=== PATIENT | female | born 1945 ===

== ENCOUNTER → 2021-03-26 13:09 | Outpatient (BNVA) | payer OTHER, SELFPAY | PROVIDERS: PCP Internal Medicine; Visit Provider Nurse Practitioner Family ==

== ENCOUNTER → 2021-05-29 15:25 | Outpatient (BNVA) | payer OTHER, SELFPAY | PROVIDERS: PCP Internal Medicine; Visit Provider Nurse Practitioner Family ==

== ENCOUNTER → 2022-04-22 13:04 | Outpatient (BNVA) | payer OTHER, SELFPAY | PROVIDERS: PCP Internal Medicine; Visit Provider Nurse Practitioner Family | DX: Z13.89 Encounter for screening for other disorder (principal) ==

== ENCOUNTER → 2022-06-10 13:54 | Outpatient (BNVA) | payer OTHER, SELFPAY | PROVIDERS: PCP Internal Medicine; Visit Provider Psychiatry & Neurology Neurology | DX: K11.7 Disturbances of salivary secretion (principal) | CPT/HCPCS: 64611; J0585 ==

== ENCOUNTER → 2022-07-23 20:30 | Outpatient (REF) | payer OTHER, SELFPAY | LOC: HO.SL 20:30 | PROVIDERS: PCP Internal Medicine; Visit Provider Nurse Practitioner Family | DX: G47.50 Parasomnia, unspecified (principal); R06.83 Snoring; G47.19 Other hypersomnia; G20 Parkinson's disease | CPT/HCPCS: 95810 ==

== ENCOUNTER → 2022-08-24 15:19 | Outpatient (BNVA) | payer OTHER, SELFPAY | PROVIDERS: PCP Internal Medicine; Visit Provider Nurse Practitioner Family ==

== ENCOUNTER → 2022-09-22 13:22 | Outpatient (BNVA) | payer OTHER, SELFPAY | PROVIDERS: PCP Internal Medicine; Visit Provider Psychiatry & Neurology Neurology | DX: K11.7 Disturbances of salivary secretion (principal) | CPT/HCPCS: 64611; J0585 ==

== ENCOUNTER 2022-12-21 14:29 | Outpatient (AMB) | payer OTHER, SELFPAY ==
--- NOTE | 2022-12-21 14:29 | A.OFFVIS_ITS ---
Intake Intake Visit Reasons: 4m follow up-Confirmed Intake Note: Patient presents for follow up. patients states her tremors are really bad and her legs are not responding to what she wants to do, they give up on her. Allergies losartan Allergy (Severe, Verified 12/28/22 15:21) Unknown metformin Allergy (Unknown, Verified 12/28/22 15:21) Unknown lisinopril Adverse Reaction (Verified 12/28/22 15:21) unknown Medication List - Last Reconciled 12/21/22 by MARY Arias amlodipine 10 mg PO DAILY carbidopa 25 mg PO QID 30 days carbidopa-levodopa 23.75-95 mg ER (Rytary) 1 cap PO QID 90 days carbidopa-levodopa 36.25-145 mg ER (Rytary) 1 cap PO BID 30 days insulin glargine (Lantus Solostar U-100 Insulin) 10 units subcut QPM meclizine 12.5 mg PO TID PRN 14 days meloxicam 15 mg PO DAILY mirtazapine 7.5 mg PO BEDTIME omeprazole 20 mg PO BID onabotulinumtoxinA (Botox) 100 units IM ONCE 12 weeks ondansetron HCl 4 mg PO Q8H PRN 14 days propranolol 10 mg PO BID 30 days rosuvastatin 10 mg PO DAILY sertraline 100 mg PO DAILY sertraline 25 mg PO DAILY sitagliptin phosphate (Januvia) 100 mg PO DAILY valbenazine (Ingrezza) 80 mg PO DAILY 30 days HPI HPI Comments History of Present Illness Details 77-yr-old female presents for f/u televi vincent visit via [employer] [place], her dtr provides history. Pt's dtr reports that pt was having increased N/V. Family and PCP has tried making med adjustments, which seems to be helping some. Pt is now having much less bouts of nausea and vomiting. She does have difficulty swallowing, which can trigger bouts of vomiting. Pt is having a bit more leg weakness, legs not responding, legs wanting to give out. Can be prone to orthostatic lightheadedness or random dizziness. Pt's current PD/TD medication regimen: Rytary 23.75-95mg 1 cap tid. Propranolol 10mg bid Ingrezza 80mg Using Zofran prn PFSH Surgical History History of orthopedic surgery Family History Mother Heart disease Brother Parkinson disease Son Epilepsy Social History Alcohol intake: never Patient Tobacco Use Status: Current everyday Tobacco user Review of Systems Const All systems reviewed & are unremarkable except as noted in HPI and below Physical Exam Const General: cooperative and no acute distress Resp Effort & Inspection: normal respiratory effort and able to speak in complete sentences Assessment & Plan Assessment & Plan (1) Dysphagia: Code(s): R13.10 - Dysphagia, unspecified (2) Parkinson disease: Comment: Positive PASQUALE scan Code(s): G20 - Parkinson's disease (3) Neuroleptic-induced tardive dyskinesia: Code(s): G24.01 - Drug induced subacute dyskinesia; T43.505A - Adverse effect of unspecified antipsychotics and neuroleptics, initial encounter Plan Try to reduce Ingrezza from 80mg qd to 60mg qd- in hopes this reduces her bradykinesia Continue Rytary 23.75-95mg 1 cap tid- 8am, 2pm, 8pm. Continue Propranolol 10mg bid- 8 am and 4pm Orders: Orders [place] barium swallow 12/21/22 R13.10 - Dysphagia, unspecified Medications: New valbenazine (Ingrezza) 60 mg PO DAILY 30 days 30 caps 3RF Telehealth Telehealth Location of provider rendering services: practice address Location of patient: address on file Patient Identification confirmed using: Name, : Yes Telehealth method: video Patient verbally consented to treatment: Yes Patient verbally consented to billing insurance company: Yes Patient informed of any privacy concerns related to visit: Yes Minutes spent on Phone/Video with Pt.: 15 Coding Level of Care Code Tele Est Pt Level 4 (93852) Diagnoses Dysphagia R13.10 Parkinson disease G20 Neuroleptic-induced tardive dyskinesia G24.01; T43.505A
== END 2022-12-22 08:23 | disposition home or self-care (01) ==
LOC: HO.HSMS 14:29
PROVIDERS: PCP Internal Medicine; Visit Provider Nurse Practitioner Family
DX: G20.B2 Parkinson's disease with dyskinesia, with fluctuations (principal); R13.10 Dysphagia, unspecified
CPT/HCPCS: 99214

== ENCOUNTER → 2022-12-21 14:29 | Outpatient (BNVA) | payer OTHER, SELFPAY | PROVIDERS: PCP Internal Medicine; Visit Provider Nurse Practitioner Family ==

== ENCOUNTER 2022-12-28 15:13 | Outpatient (AMB) | payer OTHER, SELFPAY ==
--- NOTE | 2022-12-28 15:17 | MHC.OFFVIS ---
Intake Vital Signs 12/28/22 15:23 Height 4 ft 11 in Weight 130 lb 8 oz BMI 26.4 BP 108/58 L Blood Pressure Location Lt brachial Position Sitting Respiration 15 Pulse 74 Pulse Source Pulse Oximeter Pulse Oximetry (%) 96 Oxygen Delivery Method Room Air Intake Visit Reasons: Botox Intake Note: Pt presents to office for Botox injection. Allergies losartan Allergy (Severe, Verified 12/28/22 15:21) Unknown metformin Allergy (Unknown, Verified 12/28/22 15:21) Unknown lisinopril Adverse Reaction (Verified 12/28/22 15:21) unknown Medication List - Last Reconciled 12/28/22 by Kady Montalvo MD amlodipine 10 mg PO DAILY carbidopa 25 mg PO QID 30 days carbidopa-levodopa 23.75-95 mg ER (Rytary) 1 cap PO QID 90 days carbidopa-levodopa 36.25-145 mg ER (Rytary) 1 cap PO BID 30 days insulin glargine (Lantus Solostar U-100 Insulin) 10 units subcut QPM meclizine 12.5 mg PO TID PRN 14 days meloxicam 15 mg PO DAILY mirtazapine 7.5 mg PO BEDTIME omeprazole 20 mg PO BID onabotulinumtoxinA (Botox) 100 units IM ONCE 12 weeks ondansetron HCl 4 mg PO Q8H PRN 14 days propranolol 10 mg PO BID 30 days rosuvastatin 10 mg PO DAILY sertraline 100 mg PO DAILY sertraline 25 mg PO DAILY sitagliptin phosphate (Januvia) 100 mg PO DAILY valbenazine (Ingrezza) 80 mg PO DAILY 30 days valbenazine (Ingrezza) 60 mg PO DAILY 30 days HPI HPI Comments History of Present Illness Details 77y/o female comes for treatment of her excessive drooling. ? Side effects including spread of toxin effect, dysphagia, breathing difficulties , bronchitis etc was discussed in detail and the patient agreed to the procedure.An informed consent was obtained ??? Botulinum toxin type A 100units X 1 -was diluted with 2 cc of normal saline at a concentration of 25 units in 0.5cc saline. Lot number [id number] expiration 02/2025 ??? Sites injected Bilateral parotid glands 30 units each Bilateral Submandibular glands 20 units each ??? Total used 100 units PFSH Surgical History History of orthopedic surgery Family History Mother Heart disease Brother Parkinson disease Son Epilepsy Social History Alcohol intake: never Patient Tobacco Use Status: Current everyday Tobacco user Physical Exam Vital Signs: Last Vital Signs Pulse 74 12/28/22 15:23 Resp 15 12/28/22 15:23 BP 108/58 L 12/28/22 15:23 Pulse Ox 96 12/28/22 15:23 Oxygen Delivery Method Room Air 12/28/22 15:23 BMI result Body Mass Index 26.4 Const General: cooperative and no acute distress Resp Effort & Inspection: normal respiratory effort and able to speak in complete sentences Neuro Other: Abnormal lingual movements. Soft speech Mild tremor. Mild UE tone. Bradykinesia Slow to stand, decreased arm swing, short steps. General: patient oriented x3 and CN's II-XI intact bilaterally Office Procedures Botulinum toxin Injection 72972 - Salivary Glands Procedure code (CPT) selection complete Office Meds onabotulinumtoxinA 100 unit solution for injection Performing Provider: Kady Montalvo MD Performing Location: [facility] Administered by: Kady Montalvo MD on 12/28/22 15:47 Dose Route Admin Location Dispensed Lot Number Expiration Date [facility] Authors [employer] 100 unit subcut 100 units [id number] 02/18/25 2482-7875-09 [employer]ER[employer]/BOTOX Comments: see HPI Assessment & Plan Assessment & Plan (1) Sialorrhea: Code(s): K11.7 - Disturbances of salivary secretion Plan Patient tolerated the procedure well SHe will call with any side effects Orders: Orders AMB Botulinum toxin Injection - Patient Supplied Today K11.7 - Disturbances of salivary secretion Coding Level of Care Code Est Pt Level 1 (73134) Diagnoses Sialorrhea K11.7 CPT Codes Botox Injection - Botox1: 20275 - Salivary Glands ([id number])
[2022-12-28 15:23] VITALS: BP 108/58; PULSE 74; RESP 15; O2SAT 96; BMI 26.4
== END 2022-12-28 15:48 | disposition home or self-care (01) ==
PROVIDERS: PCP Internal Medicine; Visit Provider Psychiatry & Neurology Neurology
DX: K11.7 Disturbances of salivary secretion (principal)
CPT/HCPCS: 64611

== ENCOUNTER → 2022-12-28 15:13 | Outpatient (BNVA) | payer OTHER, SELFPAY | PROVIDERS: PCP Internal Medicine; Visit Provider Psychiatry & Neurology Neurology | DX: K11.7 Disturbances of salivary secretion (principal) | CPT/HCPCS: 64611; 99211; J0585 ==

== ENCOUNTER 2023-03-24 10:31 | Outpatient (REF) | payer OTHER, SELFPAY | END 2023-03-24 10:32 | disposition home or self-care (01) | LOC: HO.XRAY 10:31 | PROVIDERS: PCP Internal Medicine; Visit Provider Nurse Practitioner Family | DX: R13.10 Dysphagia, unspecified (principal) | CPT/HCPCS: 74220 ==

== ENCOUNTER → 2023-03-24 10:31 | Outpatient (BNV) | payer OTHER, SELFPAY | PROVIDERS: PCP Internal Medicine; Visit Provider Radiology Diagnostic Radiology | DX: R13.10 Dysphagia, unspecified (principal) | CPT/HCPCS: 74221 ==

== ENCOUNTER 2023-06-29 10:55 | Outpatient (AMB) | payer OTHER, SELFPAY ==
[2023-06-29 10:57] VITALS: BP 104/58; PULSE 110; O2SAT 98; BMI 24.4
--- NOTE | 2023-06-29 10:57 | MHC.OFFVIS ---
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 Accompanied by: Daughter Allergies losartan Allergy (Severe, Verified 06/29/23 11:01) Unknown metformin Allergy (Unknown, Verified 06/29/23 11:01) Unknown lisinopril Adverse Reaction (Verified 06/29/23 11:01) unknown Medication List - Last Reconciled 06/29/23 by MARY Arias amlodipine 10 mg PO DAILY insulin glargine (Lantus Solostar U-100 Insulin) 10 units subcut QPM meclizine 12.5 mg PO TID PRN 14 days meloxicam 15 mg PO DAILY mirtazapine 7.5 mg PO BEDTIME omeprazole 20 mg PO BID onabotulinumtoxinA (Botox) 100 units IM ONCE 12 weeks ondansetron HCl 4 mg PO Q8H PRN 14 days [power recliner with lift capabilities As directed] propranolol 10 mg PO BID 30 days rosuvastatin 5 mg PO DAILY sertraline 100 mg PO DAILY sitagliptin phosphate (Januvia) 100 mg PO DAILY valbenazine (Ingrezza) 80 mg PO DAILY 30 days HPI HPI Comments History of Present Illness Details 78-yr-old female presents for f/u visit. Pt reports she continues to have significant nausea, weight loss, anorexia. Patient did have a barium swallow, which showed mild esophageal peristalsis dysfunction, severe GERD, moderate gastritis. She did have a follow-up EGD- I am unable to access the results of this.. She did see GI at [facility], was advised to take omeprazole, and was told she did not need follow-up. Overall, patient is not eating much. Patient does continue to smoke, per daughter a pack of cigarettes lasts a couple of days. Patient did not tolerate the Botox for drooling- was very uncomfortable and not very helpful, does not think the benefits outweigh these risks. She continues to take Rytary 95 mg cap 1 cap t.i.d. and propranolol 10 mg b.i.d.. She is compliant with Ingrezza 80 mg daily- for involuntary lingual movements, which is still helpful. ADL's: Needs max, mostly d/t the tremor Swallowing: Difficulty w/ fluids and solids Drooling: continues to have drooling Orthostatic lightheadedness: Transient lightheadedness upon standing. Better since reducing sertraline and BP med. Constipation: Constipation- using colace- not helpful, miralx in the past was helpful Urinary symptoms: urinary leakage- saw her urology- advised to try OAB tx- pt declined Tremor: increased rest and action tremor. pt is bale to smoke Dyskinesia: increased lingual movements- has not noticed increased difficulty with eating Stiffness: the arms and the legs, more so on the right Gait changes: easily tires. Freezing: feet feel stuck or heavy Falls: She had a recent fall, felt like her legs would give out, then started to walk faster, but then tripped and fell. Mood: not wanting to go out, dtr has to really encourage her to leave the home. Hallucinations: denies Memory: not good Sleep: Not sleeping well- using melatonin 3mg , remeron 7.5mg, and CBD edibles to sleep Exercise: none 03/24/23, FL/FL barium swallow IMPRESSION: 1. Mildly disordered esophageal peristalsis 2. Small type I hiatal hernia 3. Severe gastroesophageal reflux 4. Irregular appearance of thickened gastric mucosal folds and irregular superficial gastric mucosa suggestive of moderate gastritis. Suggest correlation with EGD. [facility] Surgical History History of orthopedic surgery Family History Mother Heart disease Brother Parkinson disease Son Epilepsy Social History Alcohol intake: never Patient Tobacco Use Status: Current everyday Tobacco user Review of Systems Const All systems reviewed & are unremarkable except as noted in HPI and below Physical Exam Vital Signs: Last Vital Signs Pulse 110 H 06/29/23 10:57 BP 104/58 L 06/29/23 10:57 Pulse Ox 98 06/29/23 10:57 Oxygen Delivery Method Room Air 06/29/23 10:57 BMI result Body Mass Index 24.4 Const General: cooperative and no acute distress Resp Effort & Inspection: normal respiratory effort and able to speak in complete sentences Neuro Other: General: A&O x's 3 Expression: Mildly decreased Voice: Soft Tremor: Bilateral upper extremity rest and postural tremor Tone: Mild upper extremity tone Dyskinesia: Involuntary lingual movements, tardive dyskinesia FFM: Decreased Foot taps: Decreased Gait: Slow to stand, short steps, decreased arm swing, steady gait today Psych: Pleasant affect Assessment & Plan Assessment & Plan (1) Parkinson's disease without dyskinesia: Comment: Positive PASQUALE scan Code(s): G20.A1 - Parkinson's disease without dyskinesia, without mention of fluctuations (2) Constipation: Code(s): K59.00 - Constipation, unspecified (3) Nausea: Code(s): R11.0 - Nausea (4) GERD (gastroesophageal reflux disease): Code(s): K21.9 - Gastro-esophageal reflux disease without esophagitis (5) Dysphagia: Code(s): R13.10 - Dysphagia, unspecified (6) Gait difficulty: Code(s): R26.9 - Unspecified abnormalities of gait and mobility (7) Tremor: Code(s): R25.1 - Tremor, unspecified (8) Neuroleptic-induced tardive dyskinesia: Code(s): G24.01 - Drug induced subacute dyskinesia; T43.505A - Adverse effect of unspecified antipsychotics and neuroleptics, initial encounter Plan Continue Ingrezza 80mg qd. May wean off Rytary 23.75-95mg 1 cap tid- 8am, 2pm, 8pm. Continue Propranolol 10mg bid- 8 am and 4pm Trial trihexyphenidyl 1 mg p.o. daily, if well tolerated increase to 1 mg b.i.d.- in hopes this reduces tremor Increase physical activity. Patient would benefit from a powered recliner, to assist her in changing positions from sitting to standing, especially when she is in a Parkinson's off period. Take omeprazole daily. Take MiraLax 1/2-1 cap p.o. every other day to daily to prevent constipation Will refer patient for 2nd opinion on her GI signs and symptoms, question is patient has had H pylori testing. Orders: Referrals Gastroenterology Referral G20.A1 - Parkinson's disease without dyskinesia, without mention of fluctuations, G24.01 - Drug induced subacute dyskinesia, K21.9 - Gastro-esophageal reflux disease without esophagitis, K59.00 - Constipation, unspecified, R11.0 - Nausea, T43.505A - Adverse effect of unspecified antipsychotics and neuroleptics, initial encounter Medications: New polyethylene glycol 3350 (Miralax) 17 grams PO DAILY 510 grams 1RF 30 days trihexyphenidyl give with food (meal/snack) 1 mg (1/2 x 2 mg) PO DAILY 15 tabs 3RF 30 days Refilled valbenazine (Ingrezza) 80 mg PO DAILY 30 caps 6RF 30 days Coding Level of Care Code Est Pt Level 4 (82689) Diagnoses Parkinson's disease without dyskinesia G20.A1 Constipation K59.00 Nausea R11.0 GERD (gastroesophageal reflux disease) K21.9 Dysphagia R13.10 Gait difficulty R26.9 Tremor R25.1 Neuroleptic-induced tardive dyskinesia G24.01; T43.505A
== END 2023-06-29 12:03 | disposition home or self-care (01) ==
PROVIDERS: PCP Internal Medicine; Visit Provider Nurse Practitioner Family
DX: G20.A1 Parkinson's disease without dyskinesia, without mention of fluctuations (principal); K59.00 Constipation, unspecified; R11.0 Nausea; K21.9 Gastro-esophageal reflux disease without esophagitis; R13.10 Dysphagia, unspecified; R26.9 Unspecified abnormalities of gait and mobility; R25.1 Tremor, unspecified; G24.01 Drug induced subacute dyskinesia; T43.505A Adverse effect of unspecified antipsychotics and neuroleptics, initial encounter
CPT/HCPCS: 99214

== ENCOUNTER → 2023-06-29 10:55 | Outpatient (BNVA) | payer OTHER, SELFPAY | PROVIDERS: PCP Internal Medicine; Visit Provider Nurse Practitioner Family ==

== ENCOUNTER → 2023-09-09 14:28 | Outpatient (BNVA) | payer OTHER, SELFPAY | PROVIDERS: PCP Internal Medicine; Visit Provider Nurse Practitioner Family ==

== ENCOUNTER 2023-10-21 15:32 | Outpatient (AMB) | payer OTHER, SELFPAY ==
[2023-10-21 15:33] VITALS: BP 112/60; PULSE 67; BMI 25.0
--- NOTE | 2023-10-21 15:33 | MHC.OFFVIS ---
Vital Signs 10/21/23 15:33 Height 4 ft 11 in Weight 123 lb 14.397 oz BMI 25.0 BP 112/60 Blood Pressure Location Rt brachial Position Sitting Pulse 67 Intake Visit Reasons: Black Stools r/s'd from 09/13/23 Intake Note: New patient in office today referred for black stool . CC: Patient's daughter states that the patient was having stomach troubles a long time ago. Patient was found was found to have an artery that feeds the intestines was clogged and she got better. Ever since after she got the stent placed she had a few episodes of black stools that are not resolved. She reports constipation, lower abdominal pain, nausea, acid reflux, heartburn, and chocking with foods and liquids. She was told that she was supposed to follow a puree diet but per Pt's daughter she does not follow this diet. She has never had a colonoscopy done. She had an EGD done this year in [facility] per Pt's daughter. Allergies atorvastatin Allergy (Severe, Verified 10/21/23 15:45) Anaphylaxis losartan Allergy (Severe, Verified 10/21/23 15:45) Unknown metformin Allergy (Unknown, Verified 10/21/23 15:45) Unknown lisinopril Adverse Reaction (Severe, Verified 10/21/23 15:45) Difficulty Breathing trazodone Adverse Reaction (Severe, Verified 10/21/23 15:45) sedation and gait disturbance HPI HPI Black Stools r/s'd from 09/13/23: Details: 78-year-old female here for initial evaluation of melena. She is referred by [facility] adult [facility] in [place]. P.m. 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 Cholecystectomy * ALLERGIES Atorvastatin Lisinopril Losartan Metformin Trazodone * Critical Links LABS: none in our system TODAY'S VISIT Somali # dtr translates per pt request She started having N/V/D and wt loss and until she was admitted to the hospital they did not know why. They discovered a blocked celiac artery and stented it She had an EGD which from the pt report was normal. SInce being stented she has been eating again and has gained 10 lbs! She has only occasional HB which resolved with Pepto (which she knows can turn stool black harmlessly). She will have lower abd pain about 3 times a week, but this resolves wtih passing gas. They are unsure of her hx if there were polyps. It has been quite a long time since she had a colonoscopy, but given her age and the fact that she had a VERY BAD EXPERIENCE WITH THE LAST SCOPE R/T DIARRHEA that did not easily resolve after prep, I am reluctant to love in to this. I suggest we do a cologuard first. She also tends to have HB mostly at night, but only taking famotidine 20mg qnoon, Try increasing to bid and if not will consider PPI, perhaps prptonix given her diarrhea hx. WIll order COloguard ROV 8 weeks. [facility] Medical History (Updated 10/21/23 @ 16:20 by HALINA Beltran) Gallstones Nephrolithiasis Parkinson disease Surgical History (Updated 09/12/23 @ 12:48 by HALINA Beltran) History of fusion of talotibial joint and subtalar joint History of arthroscopic surgery of shoulder History of open reduction and internal fixation (ORIF) procedure History of cholecystectomy H/O lumpectomy History of appendectomy History of hysterectomy Family History Mother Heart disease Brother Parkinson disease Son Epilepsy Social History Alcohol intake: never Patient Tobacco Use Status: Current everyday Tobacco user Review of Systems Const Denies fatigue, Denies fever(s), Denies night sweats, Denies poor appetite and Reports weight loss ENT Reports Normal hearing present, Denies dental pain, Denies dysphagia, Denies hearing loss, Denies mouth pain, Denies odynophagia, Denies throat swelling, Denies tongue swelling and Reports other (Dentition adequate) Card Reports no additional complaints Resp Reports no additional complaints GI Details: Reports abdominal pain, Denies melena, Denies bloating, Denies hematochezia, Denies constipation, Denies GI cramping, Denies dysphagia, Denies excessive flatus, Denies early satiety, Denies heartburn, Denies diarrhea, Denies nausea, Denies odynophagia, Denies vomiting and Denies hematemesis Skin/Breast Denies pruritus, Denies lesions, Denies rash and Denies jaundice Neuro Reports Normal hearing present and Denies Abnormal speech present Endo Denies fatigue Aller/Immun Denies throat swelling and Denies tongue swelling Physical Exam Vital Signs: Last Vital Signs Pulse 67 10/21/23 15:33 BP 112/60 10/21/23 15:33 BMI result Body Mass Index 25.0 Const General: cooperative, no acute distress, well developed and well groomed Nutritional Appearance: average body habitus and well nourished Orientation/consciousness: oriented to person, oriented to place and oriented to time Limitations: language barrier, ambulation with cane and wheelchair HEENT Head: Yes normocephalic and Yes atraumatic Eyes General: appearance normal, both eyes and all related structures Pupils: Equal, round and reactive pupils present Neck Neck: Yes normal visual inspection and Yes no lymphadenopathy Thyroid: Thyroid normal Resp Effort & Inspection: normal respiratory effort and able to speak in complete sentences Auscultation: clear to auscultation bilaterally Cardio Rate: regular rate Rhythm: regular rhythm Heart sounds: Normal, physiologic split S2 sound present Peripheral pulses: radial pulses present and posterior tibial pulses present GI Inspection: No distended, Yes Abdominal panniculus present and Yes obesity Palpation (GI): Soft to palpation, Tenderness to palpation present (GI) in the LLQ and in the RLQ, no guarding, not rigid and No hepatosplenomegaly present Percussion: Yes normal to percussion Auscultation: normal bowel sounds Rectal Exam - Female: deferred Skin General skin exam: no rashes or lesions noted, turgor normal, skin not dry, no jaundice, No spider nevi and no striae Rashes: no rashes Nails: normal Neuro Other: general tremor General: oriented to person, oriented to place and oriented to time Cranial nerves: Yes Equal, round and reactive pupils present and Yes Normal hearing present Speech: No Abnormal speech present Extrem General: Yes normal to inspection, No clubbing, No cyanosis and No edema Psych Appearance: grossly normal and well kempt Mental Status: mental status grossly normal Speech and movement: Slowed speech present (Psych) Affect: normal affect Attitude: cooperative Thought process: Normal thought process present and not confabulating Thought content: Normal thought content present Insight: Limited insight present (Psych) Judgement: Limited judgement present (Psych) Results Reviewed Results Reviewed: 78 YOF with pertinent PMH of Parkinson disease, DVT, dementia, CAD, DM, HTN, HLD and asthma presented on 08/24/23 to [facility] with 4 weeks of abdominal pain, nausea, vomiting and weight loss on 08/24/23. Initial lab work concerning for urinary tract infection for which she was initiated on IV antibiotics and subsequent improvement in urinary symptoms. Urine culture grew less than 10K colonies. Blood cultures have remained negative to date. Antibiotic course completed inpatient. ? ? Presented abdominal pain and concern for mesenteric ischemia, CT angio abdomen and pelvis obtained which showed: ? Suboptimal examination due to motion degradation in the upper abdomen. ? 1. No CT evidence of acute mesenteric ischemia. 2. Heavy atherosclerotic cavitation at the origin of the SMA with chronic appearing occlusion with subsequent immediate reconstitution. The DAYNA is patent. 3. Heavy calcification at the origin of the celiac artery with high-grade stenosis ? Vascular surgery consult requested and patient underwent SMA angio with stenting without postoperative complications. Patient has to follow-up with vascular surgery as an outpatient within 1 month's time for repeat duplex. I updated patient's daughter about the plan. She expresses gratitude and expresses understanding. ? ResultsDischarge Labs BACTERIOLOGY Urine Culture Results Final report ()? 08/24/2023 12:38 Blood Culture Results Final report ()? 08/25/2023 00:20 Blood Culture Specimen Source BLOOD ()? 08/25/2023 00:20 Blood Culture Isolate 1 Comment ()? 08/25/2023 00:20 Blood Cult 2 Results Final report ()? 08/25/2023 00:22 Blood Culture 2 Specimen Source BLOOD ()? 08/25/2023 00:22 Blood Culture 2 Isolate 1 Comment ()? 08/25/2023 00:22 ? ? ? BLOOD COUNT & DIFF WBC 5.9 k/mm3 ()? 08/28/2023 10:37 RBC 4.42 m/mm3 ()? 08/28/2023 10:37 Hgb 12.6 Gm/dL ()? 08/28/2023 10:37 Hct 38.0 % ()? 08/28/2023 10:37 MCV 86.0 femtoliters ()? 08/28/2023 10:37 MCH 28.5 pg ()? 08/28/2023 10:37 MCHC 33.2 g/dL ()? 08/28/2023 10:37 Platelet Count 230 k/mm3 ()? 08/28/2023 10:37 RDW-SD 44.2 femtoliters ()? 08/28/2023 10:37 MPV 11.3 femtoliters ()? 08/28/2023 10:37 Nucleated RBC (Automated) 0.0 #/100 WBC'S ()? 08/28/2023 10:37 Abs. NRBC 0.0 k/mm3 ()? 08/28/2023 10:37 Abs. Neut 6.5 k/mm3 ()? 08/24/2023 10:08 Abs. Lymph 1.2 k/mm3 ()? 08/24/2023 10:08 Abs. [place] 0.7 k/mm3 ()? 08/24/2023 10:08 Abs. Eo 0.2 k/mm3 ()? 08/24/2023 10:08 Abs. Baso 0.1 k/mm3 ()? 08/24/2023 10:08 Neut % 75.7 % ()? 08/24/2023 10:08 Lymph % 13.5 % (Low)? 08/24/2023 10:08 [place] % 7.5 % ()? 08/24/2023 10:08 Eos % 2.5 % ()? 08/24/2023 10:08 Baso % 0.6 % ()? 08/24/2023 10:08 Imm Gran 0.2 % ()? 08/24/2023 10:08 Abs. Imm Gran 0.0 k/mm3 ()? 08/24/2023 10:08 CARDIAC High Sensitivity Troponin (HSTnT) 11 ng/L ()? 08/24/2023 13:19 ? ? ? CHEM GENERAL Sodium 141 mmol/L ()? 08/28/2023 10:38 Potassium 4.1 mmol/L ()? 08/28/2023 10:38 Chloride 107 mmol/L ()? 08/28/2023 10:38 Bicarbonate Level 25 mmol/L ()? 08/28/2023 10:38 Anion Gap 9 ()? 08/28/2023 10:38 Glucose Level 213 mg/dL (High)? 08/28/2023 10:38 Glucose, POC 220 mg/dL (High)? 08/30/2023 11:57 BUN 8 mg/dL ()? 08/28/2023 10:38 Creatinine-Blood 0.60 mg/dL ()? 08/28/2023 10:38 Estimated GFR Creatinine 92 ML/MIN/1.73 M2 ()? 08/28/2023 10:38 Calcium 8.6 mg/dL ()? 08/28/2023 10:38 Protein, Total 4.7 Gm/dL (Low)? 08/26/2023 00:17 Albumin 3.3 Gm/dL (Low)? 08/26/2023 00:17 Alkaline Phosphatase 240 units/L (High)? 08/26/2023 00:17 Lipase 56 units/L ()? 08/24/2023 10:08 AST (SGOT) 11 units/L ()? 08/26/2023 00:17 ALT (SGPT) 37 units/L (High)? 08/26/2023 00:17 Bilirubin, Total 0.2 mg/dL ()? 08/26/2023 00:17 Bilirubin, Direct <0.2 mg/dL ()? 08/26/2023 00:17 Bilirubin, Indirect Direct bilirubin is less than the measureable limit. Therefore, indirect mg/dL ()? 08/26/2023 00:17 Lactate 0.8 mmol/L ()? 08/24/2023 10:08 ? ? ? HEME OTHER Hold Blue Top SPECIMEN DISCARDED AFTER 4 HOURS. ()? 08/24/2023 10:07 ? ? ? UA/URINALYSIS Appear/Color, Urine LIGHT YELLOW ()? 08/24/2023 12:38 Specific [place], Urine >1.050 (High)? 08/24/2023 12:38 pH, Urine 6.5 ()? 08/24/2023 12:38 Albumin, Urine 2+ (Abnormal)? 08/24/2023 12:38 Glucose, Urine NEGATIVE ()? 08/24/2023 12:38 Ketones, Urine 1+ (Abnormal)? 08/24/2023 12:38 Bilirubin, Urine NEGATIVE ()? 08/24/2023 12:38 Hemoglobin, Urine 1+ (Abnormal)? 08/24/2023 12:38 Nitrite, Urine NEGATIVE ()? 08/24/2023 12:38 Leukocyte, Urine 1+ (Abnormal)? 08/24/2023 12:38 Urobilinogen NORMAL mg/dL ()? 08/24/2023 12:38 WBC's, Urine 41 /HPF (High)? 08/24/2023 12:38 RBC's, Urine 5 /HPF (High)? 08/24/2023 12:38 Bacteria SLIGHT HPF (Abnormal)? 08/24/2023 12:38 Squamous Epith 1 /HPF ()? 08/24/2023 12:38 Mucus SLIGHT /LPF ()? 08/24/2023 12:38 WBC Clumps SLIGHT /HPF ()? 08/24/2023 12:38 Hold Urine Culture Testing available 48 hours from time of collection. ()? 08/24/2023 12:38 URINE OTHER Est Creatinine Clearance 51.46 mL/min ()? 08/28/2023 11:18 Urine Culture Specimen Source URINE ()? 08/24/2023 12:38 Urine Culture Isolate 1 Comment ()? 08/24/2023 12:38 ? ? Assessment & Plan Assessment & Plan (1) Abdominal bloating: Code(s): R14.0 - Abdominal distension (gaseous) Category: Medical (2) Celiac artery stenosis: Code(s): I77.1 - Stricture of artery Category: Medical (3) GERD (gastroesophageal reflux disease): Code(s): K21.9 - Gastro-esophageal reflux disease without esophagitis Category: Medical Plan Somali # dtr translates per pt request She started having N/V/D and wt loss and until she was admitted to the hospital they did not know why. They discovered a blocked celiac artery and stented it She had an EGD which from the pt report was normal. SInce being stented she has been eating again and has gained 10 lbs! She has only occasional HB which resolved with Pepto (which she knows can turn stool black harmlessly). She will have lower abd pain about 3 times a week, but this resolves wtih passing gas. They are unsure of her hx if there were polyps. It has been quite a long time since she had a colonoscopy, but given her age and the fact that she had a VERY BAD EXPERIENCE WITH THE LAST SCOPE R/T DIARRHEA that did not easily resolve after prep, I am reluctant to love in to this. I suggest we do a cologuard first. She also tends to have HB mostly at night, but only taking famotidine 20mg qnoon, Try increasing to bid and if not will consider PPI, perhaps prptonix given her diarrhea hx. WIll order COloguard ROV 8 weeks. Medications: New famotidine (Pepcid) 20 mg PO BID 60 tabs 6RF simethicone after meals 180 mg PO BID PRN 60 caps 3RF abdominal distention 30 days R14.0 - Abdominal distension (gaseous) Coding Level of Care Code New Pt Level 3 (99524) Diagnoses Abdominal bloating R14.0 Celiac artery stenosis I77.1 GERD (gastroesophageal reflux disease) K21.9
== END 2023-10-21 16:32 | disposition home or self-care (01) ==
PROVIDERS: PCP Internal Medicine; Referring Provider Internal Medicine; Visit Provider Nurse Practitioner
DX: R14.0 Abdominal distension (gaseous) (principal); I77.1 Stricture of artery; K21.9 Gastro-esophageal reflux disease without esophagitis
CPT/HCPCS: 99203

== ENCOUNTER → 2023-10-21 15:32 | Outpatient (BNVA) | payer OTHER, SELFPAY | PROVIDERS: PCP Internal Medicine; Visit Provider Nurse Practitioner ==

== ENCOUNTER 2023-12-16 15:57 | Outpatient (AMB) | payer OTHER, SELFPAY ==
--- NOTE | 2023-12-16 16:05 | A.OFFVIS_ITS ---
Vital Signs 12/16/23 16:15 Height 4 ft 11 in Intake Visit Reasons: 8 week follow up Intake Note: Patient in office today in follow up of hospital admission. CC: Patient was in the hospital at [facility] d/t bleeding ulcers and underwent a blood transfusion and iron infusion. Patient underwent EGD at [facility]. She reports feeling better today. Reports constipation and diarrhea. 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 Name: daughter Accompanied by: Daughter Allergies atorvastatin Allergy (Severe, Verified 12/20/23 12:58) Anaphylaxis losartan Allergy (Unknown, Verified 12/28/23 11:32) Unknown metformin Allergy (Unknown, Verified 12/20/23 12:58) Unknown lisinopril Adverse Reaction (Severe, Verified 12/20/23 12:58) Difficulty Breathing trazodone Adverse Reaction (Severe, Verified 12/20/23 12:58) sedation and gait disturbance HPI HPI 8 week follow up: Details: Assessment & Plan (1) Abdominal bloating: Code(s): R14.0 - Abdominal distension (gaseous) Category: Medical (2) Celiac artery stenosis: Code(s): I77.1 - Stricture of artery Category: Medical (3) GERD (gastroesophageal reflux disease): Code(s): K21.9 - Gastro-esophageal reflux disease without esophagitis Category: Medical Plan Mosotho # dtr translates per pt request She started having N/V/D and wt loss and until she was admitted to the hospital they did not know why. They discovered a blocked celiac artery and stented it She had an EGD which from the pt report was normal. SInce being stented she has been eating again and has gained 10 lbs! She has only occasional HB which resolved with Pepto (which she knows can turn stool black harmlessly). She will have lower abd pain about 3 times a week, but this resolves wtih passing gas. They are unsure of her hx if there were polyps. It has been quite a long time since she had a colonoscopy, but given her age and the fact that she had a VERY BAD EXPERIENCE WITH THE LAST SCOPE R/T DIARRHEA that did not easily resolve after prep, I am reluctant to love in to this. I suggest we do a cologuard first. She also tends to have HB mostly at night, but only taking famotidine 20mg qnoon, Try increasing to bid and if not will consider PPI, perhaps prptonix given her diarrhea hx. WIll order COloguard ROV 8 weeks. Medications: New famotidine (Pepcid) 20 mg PO BID 60 tabs 6RF simethicone after meals 180 mg PO BID PRN 60 caps 3RF abdominal distention 30 days R14.0 - Abdominal distension (gaseous) CORRESPONDENCE On 11/28/23 @ 16:01 Faith Lowe (Regarding Self / Same As Patient) Wrote To Donna Campos [place] On 11/28/23 @ 09:23 Macarena Branch Wrote To Faith Lowe Faisal - What hospital was patient seen at? On 11/28/23 @ 09:01 Faith Lowe (Regarding Self / Same As Patient) Wrote To Donna Campos Faisal, Dani was hospitalized and needed a blood transfusion due to two bleeding ulcers. She came home last night but the doctor is asking us to schedule a visit for follow up. On 11/29/23 @ 07:29 Macarena Branch Wrote To Donna Campos I was able to locate records. Patient was admitted to [facility] and was found to have symptomatic anemia, upper GI bleed, duodenal ulcer. patient received 2 units of PRBCs in the hospital, Hemoglobin was 7.9. patient discharged on Iron supplementation and they state she would benefit from IV Iron and recommended following up with our office for repeat endoscopy after 8 weeks. I will scan the discharge notes into patients records for further review if necessary. patient to also follow up with PCP in 1-2 weeks. please advise how to proceed TODAY'S VISIT CHADIAN #dtr translates per pt request She has not been able to do the Cologuard r/t bowel unpredictablity. She suddenly became weak and was drastically anemic and she was again love to [facility]. There they did an emergency endoscopy and discovered duodenal ulcers that were subsequently clipped. However, they recommended in 8 week follow-up to assess healing but [facility] is unable to get her scheduled until April. I will see if we can do better here and will have our schedulers start to work on getting her an urgent EGD. In the meantime her appetite continues to improve since both opening the occluded SMA and now addressing the ulcers. She was on blood thinners and aspirin and they took her off of the blood thinners but she remains on aspirin. We may need to reconsider aspirin therapy depending on what we discover on the repeat endoscopy. She was started on pantoprazole 40 mg twice a day at [facility] but there is some uncertainty as to whether she received the medication. I will also try prescribing this since it will be important to have aggressive acid reduction therapy on board to best heal these ulcers. She received iron transfusion and RBC transfusions. Return office visit in 3 months or sooner if she feels that she is having a relapse. 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 VARGHESE (nonalcoholic steatohepatitis) Asthma Diabetes Elevated cholesterol HTN (hypertension) Dementia KOTZEBUE (hard of hearing) Back pain Depression Diabetic retinopathy Ileus Gallstones Nephrolithiasis Parkinson disease Surgical History (Updated 12/28/23 @ 11:34 by Stefany Burgess RN) History of esophagogastroduodenoscopy (EGD) History of surgery History of fusion of talotibial joint and subtalar joint History of arthroscopic surgery of shoulder History of open reduction and internal fixation (ORIF) procedure History of cholecystectomy H/O lumpectomy History of appendectomy History of hysterectomy Family History Mother Heart disease Brother Parkinson disease Son Epilepsy Social History Alcohol intake: never Patient Tobacco Use Status: Current everyday Tobacco user Review of Systems Const Denies fatigue, Denies fever(s), Denies night sweats, Reports poor appetite and Denies weight loss ENT Reports Normal hearing present, Denies dental pain, Denies dysphagia, Denies hearing loss, Denies mouth pain, Denies odynophagia, Denies throat swelling, Denies tongue swelling and Reports other (Dentition adequate) Card Reports no additional complaints Resp Reports no additional complaints GI Details: Reports abdominal pain, Denies melena, Denies bloating, Denies hematochezia, Denies constipation, Denies GI cramping, Denies dysphagia, Denies excessive flatus, Denies early satiety, Reports heartburn, Denies diarrhea, Denies nausea, Denies odynophagia, Denies vomiting and Denies hematemesis Musc Reports muscle weakness Skin/Breast Denies pruritus, Denies lesions, Denies rash and Denies jaundice Neuro Reports Normal hearing present, Denies Abnormal speech present, Reports confusion and Reports memory loss Psych Reports confusion and Reports memory loss Endo Denies fatigue Aller/Immun Denies throat swelling and Denies tongue swelling Physical Exam Const General: cooperative, no acute distress, well developed, confusion and well groomed Nutritional Appearance: average body habitus and well nourished Orientation/consciousness: oriented to person, oriented to place, oriented to time and confusion Limitations: language barrier and wheelchair HEENT Head: Yes normocephalic and Yes atraumatic Eyes General: appearance normal, both eyes and all related structures Pupils: Equal, round and reactive pupils present Neck Neck: Yes normal visual inspection and Yes no lymphadenopathy Thyroid: Thyroid normal Resp Effort & Inspection: normal respiratory effort and able to speak in complete sentences Auscultation: clear to auscultation bilaterally Cardio Rate: regular rate Rhythm: regular rhythm Heart sounds: Normal, physiologic split S2 sound present Peripheral pulses: radial pulses present and posterior tibial pulses present GI Inspection: No distended and No Abdominal panniculus present Palpation (GI): Soft to palpation, nontender, no guarding, not rigid and No hepatosplenomegaly present Percussion: Yes normal to percussion Auscultation: normal bowel sounds Rectal Exam - Female: deferred Skin General skin exam: no rashes or lesions noted, turgor normal, skin not dry, no jaundice, No spider nevi and no striae Rashes: no rashes Nails: normal Neuro General: oriented to person, oriented to place, oriented to time and confusion Cranial nerves: Yes Equal, round and reactive pupils present and Yes Normal hearing present Speech: No Abnormal speech present Extrem General: Yes normal to inspection, No clubbing, No cyanosis and No edema Psych Appearance: grossly normal and well kempt Mental Status: other Speech and movement: Slowed speech present (Psych) Affect: normal affect Attitude: cooperative Thought process: not confabulating and Other thought process findings present Thought content: other Insight: Poor insight present (Psych) Judgement: Poor judgement present (Psych) Assessment & Plan Assessment & Plan (1) Celiac artery stenosis: Code(s): I77.1 - Stricture of artery Category: Medical (2) GERD (gastroesophageal reflux disease): Code(s): K21.9 - Gastro-esophageal reflux disease without esophagitis Category: Medical (3) Abdominal bloating: Code(s): R14.0 - Abdominal distension (gaseous) Category: Medical (4) Dementia: Code(s): F03.90 - Unspecified dementia, unspecified severity, without behavioral disturbance, psychotic disturbance, mood disturbance, and anxiety Category: Medical (5) GI bleed: Code(s): K92.2 - Gastrointestinal hemorrhage, unspecified Category: Medical (6) Duodenal ulcer: Comment: originally clipped at [facility] Code(s): K26.9 - Duodenal ulcer, unspecified as acute or chronic, without hemorrhage or perforation Category: Medical Plan CHADIAN #dtr translates per pt request She has not been able to do the Cologuard r/t bowel unpredictablity. She suddenly became weak and was drastically anemic and she was again love to [facility]. There they did an emergency endoscopy and discovered duodenal ulcers that were subsequently clipped. However, they recommended in 8 week follow-up to assess healing but [facility] is unable to get her scheduled until April. I will see if we can do better here and will have our schedulers start to work on getting her an urgent EGD. In the meantime her appetite continues to improve since both opening the occluded SMA and now addressing the ulcers. She was on blood thinners and aspirin and they took her off of the blood thinners but she remains on aspirin. We may need to reconsider aspirin therapy depending on what we discover on the repeat endoscopy. She was started on pantoprazole 40 mg twice a day at [facility] but there is some uncertainty as to whether she received the medication. I will also try prescribing this since it will be important to have aggressive acid reduction therapy on board to best heal these ulcers. She received iron transfusion and RBC transfusions. Return office visit in 3 months or sooner if she feels that she is having a relapse. Orders: Orders EGD - GI Use Only 12/16/23 K92.2 - Gastrointestinal hemorrhage, unspecified, K26.9 - Duodenal ulcer, unspecified as acute or chronic, without hemorrhage or perforation Medications: New pantoprazole 40 mg PO BID 60 tabs 6RF On Hold famotidine (Pepcid) Hold Comment: Doctor's Order 20 mg PO BID 60 tabs 6RF Coding Level of Care Code Est Pt Level 4 (23473) Diagnoses Celiac artery stenosis I77.1 GERD (gastroesophageal reflux disease) K21.9 Abdominal bloating R14.0 Dementia F03.90 GI bleed K92.2 Duodenal ulcer K26.9 Time Spent (min) 37
== END 2023-12-16 17:00 | disposition home or self-care (01) ==
PROVIDERS: PCP Internal Medicine; Visit Provider Nurse Practitioner
DX: K21.9 Gastro-esophageal reflux disease without esophagitis (principal); K26.0 Acute duodenal ulcer with hemorrhage; I77.1 Stricture of artery; F03.90 Unspecified dementia, unspecified severity, without behavioral disturbance, psychotic disturbance, mood disturbance, and anxiety
CPT/HCPCS: 99214

== ENCOUNTER → 2023-12-16 15:57 | Outpatient (BNVA) | payer OTHER, SELFPAY | PROVIDERS: PCP Internal Medicine; Visit Provider Nurse Practitioner ==

== ENCOUNTER 2023-12-20 12:57 | Outpatient (AMB) | payer OTHER, SELFPAY ==
--- NOTE | 2023-12-20 12:57 | MHC.OFFVIS ---
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 Required: No Accompanied by: Daughter Allergies atorvastatin Allergy (Severe, Verified 12/20/23 12:58) Anaphylaxis losartan Allergy (Severe, Verified 12/20/23 12:58) Unknown metformin Allergy (Unknown, Verified 12/20/23 12:58) Unknown lisinopril Adverse Reaction (Severe, Verified 12/20/23 12:58) Difficulty Breathing trazodone Adverse Reaction (Severe, Verified 12/20/23 12:58) sedation and gait disturbance Medication List - Last Reconciled 12/20/23 by MARY Arias amlodipine 10 mg PO DAILY aspirin 81 mg PO DAILY famotidine (Pepcid) 20 mg PO BID ferrous fumarate (Ferretts) 325 mg PO DAILY hydralazine 25 mg PO BID insulin glargine (Lantus Solostar U-100 Insulin) 10 units subcut QPM meclizine 12.5 mg PO TID PRN 14 days melatonin 20 mg (2 x 10 mg) PO BEDTIME 30 days mirtazapine 7.5 mg PO BEDTIME pantoprazole 40 mg PO BID [power recliner with lift capabilities As directed] propranolol 10 mg PO BID 30 days sertraline 100 mg PO DAILY simethicone 180 mg PO BID PRN 30 days sitagliptin phosphate (Januvia) 100 mg PO DAILY trihexyphenidyl 2 mg PO BID 30 days valbenazine (Ingrezza) 80 mg PO DAILY 30 days HPI Comments Details: 78-yr-old female presents for f/u visit. Pt is accompanied by her dtr and sister. Since the last visit, in August, pt had hospitalization for exacerbation of her chronic GI s/s, she was found to have superior messenteric artery stenosis which was stented. She had another [facility] admission for chest pain and anemia. She was advised to f/u w/ GI and needs to have f/u EGD. Pt is currently taking trihexyphenidyl 1/2 tab qd, Ingrezza 80mg qd. Not currently taking Rytary. Pt's primary concerns are that she is having more shakiness. Dtr states pt does have adaptive equipment, such as weighted silverware, however pt does not use it. She is also having more lingual movements- dtr notes tongue appears whitish- pt denies any oral pain/discomfort/altered taste. She is overall eating better. She is still stiff and slow. She does have bothersome drooling- but she is not sure she wants to re-try Botox. GI s/s are overall better- she has had a weight gain. [facility] Medical History Gallstones Nephrolithiasis Parkinson disease Surgical History History of fusion of talotibial joint and subtalar joint History of arthroscopic surgery of shoulder History of open reduction and internal fixation (ORIF) procedure History of cholecystectomy H/O lumpectomy History of appendectomy History of hysterectomy Family History Mother Heart disease Brother Parkinson disease Son Epilepsy Social History Alcohol intake: never Patient Tobacco Use Status: Current everyday Tobacco user Physical Exam Vital Signs: Last Vital Signs Pulse 63 12/20/23 12:58 BP 140/54 H 12/20/23 12:58 Pulse Ox 94 12/20/23 12:58 Oxygen Delivery Method Room Air 12/20/23 12:58 BMI result Body Mass Index 25.3 Const General: cooperative and no acute distress Resp Effort & Inspection: normal respiratory effort and able to speak in complete sentences Neuro Other: General: A&O x's 3 Expression: Mildly decreased Voice: Soft Tremor: Bilateral upper extremity rest and postural tremor Tone: Mild upper extremity tone Dyskinesia: Involuntary lingual movements, tardive dyskinesia FFM: Decreased Foot taps: Decreased Gait: Slow to stand, short steps, decreased arm swing, steady gait today Psych: Pleasant affect Assessment & Plan Assessment & Plan (1) Parkinson's disease without dyskinesia: Comment: Positive PASQUALE scan Code(s): G20.A1 - Parkinson's disease without dyskinesia, without mention of fluctuations Category: Medical (2) Dysphagia: Code(s): R13.10 - Dysphagia, unspecified Category: Medical (3) Neuroleptic-induced tardive dyskinesia: Code(s): G24.01 - Drug induced subacute dyskinesia; T43.505A - Adverse effect of unspecified antipsychotics and neuroleptics, initial encounter Category: Medical Plan Continue Ingrezza 80mg qd. Slowly resume Rytary 23.75-95mg up to 1 cap tid- 8am, 2pm, 8pm. Continue Propranolol 10mg bid- 8 am and 4pm Wean off of trihexyphenidyl not very effective and higher doses not tolertaed. Increase physical activity. Patient would benefit from a powered recliner, to assist her in changing positions from sitting to standing, especially when she is in a Parkinson's off period. Previous PD trials- amantadine- not tolerated. Future considerations- long-acting amantadine. austedo trial. Coding Level of Care Code Est Pt Level 4 (21042) Diagnoses Parkinson's disease without dyskinesia G20.A1 Dysphagia R13.10 Neuroleptic-induced tardive dyskinesia G24.01; T43.505A
[2023-12-20 12:58] VITALS: BP 140/54; PULSE 63; O2SAT 94; BMI 25.3
== END 2023-12-20 14:05 | disposition home or self-care (01) ==
PROVIDERS: PCP Internal Medicine; Visit Provider Nurse Practitioner Family
DX: G20.A1 Parkinson's disease without dyskinesia, without mention of fluctuations (principal); R13.10 Dysphagia, unspecified; G24.01 Drug induced subacute dyskinesia; T43.505A Adverse effect of unspecified antipsychotics and neuroleptics, initial encounter
CPT/HCPCS: 99214

== ENCOUNTER → 2023-12-20 12:57 | Outpatient (BNVA) | payer OTHER, SELFPAY | PROVIDERS: PCP Internal Medicine; Visit Provider Nurse Practitioner Family | DX: K21.9 Gastro-esophageal reflux disease without esophagitis (principal); R11.0 Nausea; K59.00 Constipation, unspecified; G20.A1 Parkinson's disease without dyskinesia, without mention of fluctuations; G24.01 Drug induced subacute dyskinesia; T43.505A Adverse effect of unspecified antipsychotics and neuroleptics, initial encounter ==

== ENCOUNTER 2024-03-22 15:56 | Outpatient (AMB) | payer OTHER, SELFPAY ==
--- NOTE | 2024-03-22 15:58 | A.OFFVIS_ITS ---
Vital Signs 03/22/24 15:59 Height 4 ft 11 in BMI Reason not done Patient refused/unable BP 155/68 H Blood Pressure Location Lt brachial Position Sitting Pulse 71 Comment Patient came in a wheelchair Intake Visit Reasons: GIB, duodenal ulcers Intake Note: Patient in office today in follow up of abdominal bloating, GERD, duodenal ulcers. CC: Patient c/o abdominal pain, nausea, constipation, and heartburn. Patient also c/o right lower back pain. Adaptive Physical Educator Required: Yes Adaptive Physical Educator Name: daughter Accompanied by: Daughter Allergies atorvastatin Allergy (Severe, Verified 03/22/24 16:05) Anaphylaxis losartan Allergy (Unknown, Verified 03/22/24 16:05) Unknown metformin Allergy (Unknown, Verified 03/22/24 16:05) Unknown lisinopril Adverse Reaction (Severe, Verified 03/22/24 16:05) Difficulty Breathing trazodone Adverse Reaction (Severe, Verified 03/22/24 16:05) sedation and gait disturbance HPI HPI GIB, duodenal ulcers: Details: Assessment & Plan (1) Celiac artery stenosis: Code(s): I77.1 - Stricture of artery Category: Medical (2) GERD (gastroesophageal reflux disease): Code(s): K21.9 - Gastro-esophageal reflux disease without esophagitis Category: Medical (3) Abdominal bloating: Code(s): R14.0 - Abdominal distension (gaseous) Category: Medical (4) Dementia: Code(s): F03.90 - Unspecified dementia, unspecified severity, without behavioral disturbance, psychotic disturbance, mood disturbance, and anxiety Category: Medical (5) GI bleed: Code(s): K92.2 - Gastrointestinal hemorrhage, unspecified Category: Medical (6) Duodenal ulcer: Comment: originally clipped at [facility] Code(s): K26.9 - Duodenal ulcer, unspecified as acute or chronic, without hemorrhage or perforation Category: Medical Plan SYRIAC #dtr translates per pt request She has not been able to do the Cologuard r/t bowel unpredictablity. She suddenly became weak and was drastically anemic and she was again love to [facility]. There they did an emergency endoscopy and discovered duodenal ulcers that were subsequently clipped. However, they recommended in 8 week follow-up to assess healing but [facility] is unable to get her scheduled until April. I will see if we can do better here and will have our schedulers start to work on getting her an urgent EGD. In the meantime her appetite continues to improve since both opening the occluded SMA and now addressing the ulcers. She was on blood thinners and aspirin and they took her off of the blood thinners but she remains on aspirin. We may need to reconsider aspirin therapy depending on what we discover on the repeat endoscopy. She was started on pantoprazole 40 mg twice a day at [facility] but there is some uncertainty as to whether she received the medication. I will also try prescribing this since it will be important to have aggressive acid reduction therapy on board to best heal these ulcers. She received iron transfusion and RBC transfusions. Return office visit in 3 months or sooner if she feels that she is having a relapse. Orders: Orders EGD - GI Use Only 12/16/23 K92.2 - Gastrointestinal hemorrhage, unspecified, K26.9 - Duodenal ulcer, unspecified as acute or chronic, without hemorrhage or perforation Medications: New pantoprazole 40 mg PO BID 60 tabs 6RF On Hold famotidine (Pepcid) Hold Comment: Doctor's Order 20 mg PO BID 60 tabs 6RF CORRESPONDENCE On 01/25/24 @ 11:00 Macarena Branch Wrote To Faith Lowe We are attempting to get a prior authorization for twice a day Pantoprazole. I currently have [employer] on file but I received notification from insurance stating no eligibility found? Can you please provide us with this information. On 01/25/24 @ 07:37 Faith Lowe (Regarding Self / Same As Patient) Wrote To Donna Campos Good morning, I just wanted to let Donna know that the surgical department cancelled mom's endoscopy because her sugars were way too high after being off her Januvia for a few days. We called her child protection specialist and he said to put her back on the Januvia but even after putting her back on the Januvia her sugars were over 300's so the surgical department said it was too risky and cancelled the appointment. Also, wanted to let her know that we are now giving her the pantoprazole once a day instead of twice a day per the discharge instructions from [facility]. If she should continue to take it twice a day, please let me know. Thank you EGD BIOPSY CORRESPONDENCE On 12/30/23 @ 09:49 Kezia Thornton Wrote To Tiesha Su (2) OR called stating this patient is refusing her procedure for today does not wish to have this procedure On 12/27/23 @ 13:34 Tiesha Su Wrote To Tiesha Su Tiesha Su completed item. On 12/27/23 @ 12:30 Tiesha Su Wrote To Tiesha Su Spoke with her daughter, confirms procedure. Reviewed medications - she will hold Januvia 2 days before procedure. Discussed what she can take the morning of procedure. She has understanding and aware [facility] will call the day before procedure to confirm arrival time. Labs from [facility] BUN 18 https://hiogi/[employer] [place]/reports/mp_unified_driver?pa abel eters=^MINE^,4559854.0,001792033.0,50232489.0,183292876.0,1121.0,%22MP_REACH% 22,%22../../resources/UnifiedContent%22,%22mp_reach_v5%22,9# 03/12/24 18:15 *21 https://[employer] [place]/reports/mp_unified_driver?parameters=^MINE^,158 9986.0,591544305.0,24632845.0,458715768.0,1121.0,%22MP_REACH%22,%22../../resour es/UnifiedContent%22,%22mp_reach_v5%22,9# 03/09/24 09:03 -- Glucose Level ?62 https://hiogi/[employer] [place]/reports/mp_unified_driver?pa rameters=^MINE^,3705163.0,1449 69036.0,64522181.0,671204786.0,1121.0,%22MP_REACH%22,%22../../resources/Unifi edContent%22,%22mp_reach_v5%22,9# 03/12/24 18:15 -- -- Platelet Count 232 https://hiogi/[employer] [place]/reports/mp_unified_driver?pa rameters=^MINE^,8730813.0,736650418.0,60266025.0,633071863.0,1121.0,%22MP_REACH% 22,%22../../resources/UnifiedContent%22,%22mp_reach_v5%22,9# 03/12/24 18:15 -- -- WBC 5.6 https://hiogi/[employer] [place]/reports/mp_unified_driver?pa rameters=^MINE^,5051854.0 ,912640661.0,84846512.0,574814237.0,1121.0,%22MP_REACH%22,%22../../resources/ UnifiedContent%22,%22mp_reach_v5%22,9# 03/12/24 18:15 -- -- -HEMATOLOGY (24) WBC 5.6 https://hiogi/[employer] [place]/reports/mp_unified_driver?pa rameters=^MINE^,4061528.0,997042659.0,40493386.0,591563 571.0,1121.0,%22MP_REACH%22,%22../../resources/UnifiedContent%22,%22mp_reach_ v5%22,9# 03/12/24 18:15 -- -- RBC ?3.99 https://[employer] [place]/reports/mp_unified_driver?parameters=^MINE^,1117659 .0,999992233.0,34307288.0,996963872.0,1121.0,%22MP_REACH%22,%22../../resources/U nifiedContent%22,%22mp_reach_v5%22,9# 03/12/24 18:15 -- -- Hgb ?11.4 https://hiogi/[employer] [place]/reports/mp_PictureHealing_driver?pa rameters=^MINE^,8768455.0,769460197.0 ,40379513.0,613274685.0,1121.0,%22MP_REACH%22,%22../../resources/UnifiedConte nt%22,%22mp_reach_v5%22,9# 03/12/24 18:15 -- -- Hct ?34.3 https ://hiogi/[employer] [place]/reports/Personal Style Finder_PictureHealing_driver?paramet ers=^MINE^,3662234.0,362743902.0,49682932.0,705256011.0,1121.0,%22MP_REACH%22,%2 2../../resources/UnifiedContent%22,%22mp_reach_v5%22,9# 03/12/24 18:15 -- -- MCV 86.0 https://hiogi/[employer] [place]/reports/mp_PictureHealing_driver?pa rameters=^MINE^,7589450.0,1449 87051.0,09344143.0,936735138.0,1121.0,%22MP_REACH%22,%22../../resources/Unifi edContent%22,%22mp_reach_v5%22,9# 03/12/24 18:15 -- -- MCH 28.6 https://larry duronThe [employer] [place]/reports/Personal Style Finder_PictureHealing_driver?parameters= ^MINE^,4151172.0,774273075.0,99792988.0,147403041.0,1121.0,%22MP_REACH%22,%22../ ../resources/UnifiedContent%22,%22mp_reach_v5%22,9# 03/12/24 18:15 -- -- MCHC 33.2 https://hiogi/[employer] [place]/reports/Personal Style Finder_PictureHealing_driver?pa rameters=^MINE^,2215626.0,4453133 43.0,90780196.0,750547342.0,1121.0,%22MP_REACH%22,%22../../resources/UnifiedC ontent%22,%22mp_reach_v5%22,9# 03/12/24 18:15 -- -- Platelet Count 232 ht tps://hiogi/[employer] [place]/reports/Personal Style Finder_PictureHealing_driver?para meters=^MINE^,2516323.0,395610012.0,27530551.0,620407854.0,1121.0,%22MP_REACH%22 ,%22../../resources/UnifiedContent%22,%22mp_reach_v5%22,9# 03/12/24 18:15 -- -- RDW-SD 46.7 https://hiogi/[employer] [place]/reports/Personal Style Finder_PictureHealing_driver?pa rameters=^MINE^,5625919. 0,742684110.0,21857012.0,854822940.0,1121.0,%22MP_REACH%22,%22../../resources /UnifiedContent%22,%22mp_reach_v5%22,9# 03/12/24 18:15 -- -- MPV 10.9 htt ps://hiogi/[employer] [place]/reports/Personal Style Finder_PictureHealing_driver?valentin eters=^MINE^,1350230.0,605686774.0,74188312.0,304776643.0,1121.0,%22MP_REACH%22, %22../../resources/UnifiedContent%22,%22mp_reach_v5%22,9# 03/12/24 18:15 -- -- Nucleated RBC (Automated) 0.0 https://hiogi/[employer] [place]/reports/mp_PictureHealing_driver?betina rosario s=^MINE^,8273704.0,785624194.0,96202283.0,531075986.0,1121.0,%22MP_REACH%22,% 22../../resources/UnifiedContent%22,%22mp_reach_v5%22,9# 03/12/24 18:15 -- -- Abs. NRBC 0.0 https://hiogi/[employer] [place]/reports/Personal Style Finder_PictureHealing_driver?betina rameters=^MINE^,0417298.0,332656004.0,15545849.0,889485618.0,1121.0,%22MP_REACH% 22,%22../../resources/UnifiedContent%22,%22mp_reach_v5%22,9# 03/12/24 18:15 -- -- Abs. Neut 3.3 https://hiogi/[employer] [place]/reports/Personal Style Finder_PictureHealing_driver?betina conley ameters=^MINE^,5087189.0,141612227.0,67271551.0,303000195.0,1121.0,%22MP_REAC H%22,%22../../resources/UnifiedContent%22,%22mp_reach_v5%22,9# 03/12/24 18:15 -- -- Abs. Lymph 1.3 https://hiogi/[employer] [place]/reports/Personal Style Finder_unified_driver?betina rameters=^MINE^,5843216.0,259259351.0,57705496.0,864277800.0,1121.0,%22MP_REACH% 22,%22../../resources/UnifiedContent%22,%22mp_reach_v5%22,9# 03/12/24 18:15 -- -- Abs. Burt 0.6 https://hiogi/[employer] [place]/reports/mp_unified_dri aaron?parameters=^MINE^,0844526.0,862623470.0,58619739.0,092908094.0,1121.0,%22 MP_REACH%22,%22../../resources/UnifiedContent%22,%22mp_reach_v5%22,9# 03/12/24 18:15 -- -- Abs. Eo 0.4 https://hiogi/[employer] [place]/reports/mp_unified_driver?pa rameters=^MINE^,5624737.0,716531712.0,03985887.0,277927689.0,1121.0,%22MP_REACH% 22,%22../../resources/UnifiedContent%22,%22mp_reach_v5%22,9# 03/12/24 18:15 -- -- Abs. Baso 0.0 https://hiogi/[employer] [place]/reports/mp_unified _driver?parameters=^MINE^,8436605.0,891496183.0,95025810.0,658972632.0,1121.0 ,%22MP_REACH%22,%22../../resources/UnifiedContent%22,%22mp_reach_v5%22,9# 03/12/24 18:15 -- -- Neut % 58.6 https://hiogi/[employer] [place]/reports/mp_unified_driver?pa rameters=^MINE^,5402006.0,990005341.0,80012446.0,573091667.0,1121.0,%22MP_REACH% 22,%22../../resources/UnifiedContent%22,%22mp_reach_v5%22,9# 03/12/24 18:15 -- -- Lymph % 23.6 https://hiogi/[employer] [place]/reports/mp_unif ied_driver?parameters=^MINE^,1446334.0,887325362.0,95363258.0,972615718.0,112 1.0,%22MP_REACH%22,%22../../resources/UnifiedContent%22,%22mp_reach_v5%22,9# 03/12/24 18:15 -- -- Burt % 10.1 https://hiogi/[employer] [place]/reports/Personal Style Finder_PictureHealing_driver?pa rameters=^MINE^,1293557.0,146504815.0,73127898.0,409598220.0,1121.0,%22MP_REACH% 22,%22../../resources/UnifiedContent%22,%22mp_reach_v5%22,9# 03/12/24 18:15 -- -- Eos % ?6.6 https://hiogi/[employer] [place]/repo rts/mp_PictureHealing_driver?parameters=^MINE^,1448881.0,117676367.0,18028447.0,3099 52036.0,1121.0,%22MP_REACH%22,%22../../resources/UnifiedContent%22,%22mp_reach_v 5%22,9# 03/12/24 18:15 -- -- Baso % 0.7 https://hiogi/[employer] [place]/reports/Personal Style Finder_PictureHealing_driver?pa rameters=^MINE^,9927912.0,438636465.0,71629562.0,649048709.0,1121.0,%22MP_RE ACH%22,%22../../resources/UnifiedContent%22,%22mp_reach_v5%22,9# 03/12/24 18:15 -- -- Imm Gran 0.4 https://hiogi/[employer] [place]/re ports/mp_unified_driver?parameters=^MINE^,8991114.0,567135099.0,58771014.0,30 5519582.0,1121.0,%22MP_REACH%22,%22../../resources/UnifiedContent%22,%22mp_reach _v5%22,9# 03/12/24 18:15 -- -- Abs. Imm Gran 0.0 https://hiogi/[employer] [place]/reports/mp_unified_driver?pa rameters=^MINE^,5974447.0,230917669.0,27065937.0,883619676.0,1121.0 ,%22MP_REACH%22,%22../../resources/UnifiedContent%22,%22mp_reach_v5%22,9# 03/12/24 18:15 -- -- -CHEMISTRY (20) Sodium 142 https://hiogi/[employer] [place]/reports/mp_unified_driver?pa rameters=^MINE^,1446392.0,042722211.0,12111481.0,345274675.0,1121.0,%22MP_REACH% 22,%22../../resources/UnifiedContent%22,%22mp_reach_v5%22,9# 03/12/24 18:15 -- -- Potassium 4.6 https://hiogi/[employer] [place]/reports/Personal Style Finder_unified_d river?parameters=^MINE^,6195637.0,645545231.0,91021727.0,916837722.0,1121.0,% 22MP_REACH%22,%22../../resources/UnifiedContent%22,%22mp_reach_v5%22,9# 03/12/24 18:15 -- -- Chloride ?108 https://hiogi/[employer] [place]/reports/mp_PictureHealing_driver?pa rameters=^MINE^,5634762.0,769901283.0,10359732.0,841689308.0,1121.0,%22MP_REACH %22,%22../../resources/UnifiedContent%22,%22mp_reach_v5%22,9# 03/12/24 18:15 -- -- Bicarbonate Level 26 https://hiogi/NitroSecurity/[employer] es/reports/Personal Style Finder_PictureHealing_driver?parameters=^MINE^,3409233.0,206684580.0,96221857 .0,200299797.0,1121.0,%22MP_REACH%22,%22../../resources/UnifiedContent%22,%22mp_ reach_v5%22,9# 03/12/24 18:15 -- -- Anion Gap 8 https://hiogi/[employer] [place]/reports/Personal Style Finder_PictureHealing_driver?betina rameters=^MINE^,3095887.0,110306504.0,38803379.0,467834974.0,1121.0, %22MP_REACH%22,%22../../resources/UnifiedContent%22,%22mp_reach_v5%22,9# 03/12/24 18:15 -- -- Glucose Level ?62 https://[employer]itro[employer] [place]/reports/mp_unified_driver?parameters=^MINE^,2153383.0,14 6822919.0,75263633.0,425750938.0,1121.0,%22MP_REACH%22,%22../../resources/Unifie dContent%22,%22mp_reach_v5%22,9# 03/12/24 18:15 -- -- Glucose, POC ?120 https://hiogi/[employer] [place]/reports/mp_unified_driver?pa rameters=^MINE^,3251097.0,65645318 3.0,96012904.0,850860195.0,1121.0,%22MP_REACH%22,%22../../resources/UnifiedCo ntent%22,%22mp_reach_v5%22,9# 03/12/24 19:09 ?46 https://hiogi/[employer] [place]/reports/mp_unified_driver?parameters=^MINE^,1059132.0,714205932.0,2 7289314.0,293876817.0,1121.0,%22MP_REACH%22,%22../../resources/UnifiedContent%22 ,%22mp_reach_v5%22,9# 03/12/24 18:50 -- BUN 18 https://hiogi/[employer] [place]/reports/mp_unified_driver?pa rameters=^MINE^,6841747.0,541875614.0,29435840.0,881813432.0,1121.0,%22 MP_REACH%22,%22../../resources/UnifiedContent%22,%22mp_reach_v5%22,9# 03/12/24 18:15 *21 https://hiogi/[employer] [place]/reports/mp_unified_driver?pa rameters=^ MINE^,8820245.0,008358531.0,86960897.0,985019275.0,1121.0,%22MP_REACH%22,%22. ./../resources/UnifiedContent%22,%22mp_reach_v5%22,9# 03/09/24 09:03 -- Creatinine-Blood 0.66 https://hiogi/[employer] [place]/reports/Personal Style Finder_PictureHealing_driver?pa rameters=^MINE^,5259875.0,353252195.0,42666396.0,024402285.0,1121.0,%22MP_REACH% 22,%22../../resources/UnifiedContent%22,%22mp_reach_v5%22,9# 03/12/24 18:15 0.71 https://hiogi/[employer] [place]/reports/Personal Style Finder_PictureHealing_driver?pa rameters=^MINE^,5805694.0,909679656.0,2702 5013.0,580605316.0,1121.0,%22MP_REACH%22,%22../../resources/UnifiedContent%22 ,%22mp_reach_v5%22,9# 03/09/24 09:03 -- Estimated GFR Creatinine *90 https: //hiogi/[employer] [place]/reports/[employer]?paramete rs=^MINE^,5977998.0,028331535.0,49865849.0,517062096.0,1121.0,%22MP_REACH%22,%22 ../../resources/UnifiedContent%22,%22mp_reach_v5%22,9# 03/12/24 18:15 *88 https://hiogi/[employer] [place]/reports/[employer]?pa rameters=^MINE^,7371713.0,600648607.0,80764040.0,870866792.0,1121.0, %22MP_REACH%22,%22../../resources/UnifiedContent%22,%22mp_reach_v5%22,9# 03/09/24 09:03 -- Calcium 8.7 https://hiogi/[employer] [place]/ reports/Collaaj?parameters=^MINE^,8087417.0,156585305.0,24864563.0, 153046255.0,1121.0,%22MP_REACH%22,%22../../resources/UnifiedContent%22,%22mp_rea ch_v5%22,9# 03/12/24 18:15 -- -- Protein, Total ?5.7 https://hiogi/[employer] [place]/reports/Personal Style Finder_PictureHealing_driver?pa rameters=^MINE^,4140731.0,865746871.0,66553238.0,3099 40663.0,1121.0,%22MP_REACH%22,%22../../resources/RukukuContent%22,%22mp_reac h_v5%22,9# 03/12/24 18:15 -- -- Albumin 3.7 https://[employer]. om/[employer] [place]/reports/Personal Style Finder_PictureHealing_driver?parameters=^MINE^,4107868.0,144 051352.0,58180721.0,155603740.0,1121.0,%22MP_REACH%22,%22../../resources/Unified Content%22,%22mp_reach_v5%22,9# 03/12/24 18:15 -- -- AG Ratio 1.9 https://hiogi/[employer] [place]/reports/Personal Style Finder_PictureHealing_driver?betina rameters=^MINE^,9487087.0,897812396.0,37383377.0,3 26446303.0,1121.0,%22MP_REACH%22,%22../../resources/RukukuContent%22,%22mp_r each_v5%22,9# 03/12/24 18:15 -- -- Alkaline Phosphatase 86 https://[employer] [place]/reports/Personal Style Finder_PictureHealing_driver?parameters=^MINE ^,3522448.0,881424056.0,91199954.0,218742576.0,1121.0,%22MP_REACH%22,%22../../re sources/UnifiedContent%22,%22mp_reach_v5%22,9# 03/12/24 18:15 -- -- Lipase 15 https://hiogi/[employer] [place]/reports/mp_PictureHealing_driver?pa rameters=^MINE^,8139692.0,937890133.0, 23017580.0,326808840.0,1121.0,%22MP_REACH%22,%22../../resources/UnifiedConten t%22,%22mp_reach_v5%22,9# 03/12/24 18:15 -- -- AST (SGOT) 13 https://[employer] [place]/reports/Personal Style Finder_PictureHealing_driver?parameters=^PA NE^,3512468.0,320975747.0,52011703.0,775991566.0,1121.0,%22MP_REACH%22,%22../../ resources/UnifiedContent%22,%22mp_reach_v5%22,9# 03/12/24 18:15 -- -- ALT (SGPT) <5 https://hiogi/[employer] [place]/reports/Personal Style Finder_PictureHealing_driver?pa rameters=^MINE^,0359794.0,195237 143.0,51313133.0,402548036.0,1121.0,%22MP_REACH%22,%22../../resources/Unified Content%22,%22mp_reach_v5%22,9# 03/12/24 18:15 -- -- Bilirubin, Total <0.2 https://hiogi/[employer] [place]/reports/Personal Style Finder_PictureHealing_driver?pa rameters=^MINE^,6902702.0,047163290.0,44498970.0,800895221.0,1121.0,%22MP_REACH% 22,%22../../resources/UnifiedContent%22,%22mp_reach_v5%22,9# 03/12/24 18:15 -- -- High Sensitivity Troponin (HSTnT) *13 https://[employer].Disconnect/Personal Style Finder_mobile/mpages/reports/ mp_unified_driver?parameters=^MINE^,7563420.0,742597516.0,36200370.0,46917571 1.0,1121.0,%22MP_REACH%22,%22../../resources/UnifiedContent%22,%22mp_reach_v5%22 ,9# 03/12/24 20:43 TODAY'S VISIT SYRIAC #dtr translates per pt request She has not been eating well and is c/o gastric pain. She seemed to be doing better when she had bid protonix, so we will increase this again. 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 Her sugars are now controlled, so we will request to have the EGD rescheduled. She has gained weight, so this is a positive development. Get labs from [facility] last admission. She was taken off of the blood thinner (erika vix) and is not only on asa ROV 8 weeks. [facility] Medical History (Updated 01/20/24 @ 16:19 by MARY Arias) Neuroleptic-induced tardive dyskinesia Tremor Dysphagia GERD (gastroesophageal reflux disease) Superior mesenteric artery stenosis Celiac artery stenosis VARGHESE (nonalcoholic steatohepatitis) Asthma Diabetes Elevated cholesterol HTN (hypertension) Dementia [place] (hard of hearing) Back pain Depression Diabetic retinopathy Ileus Gallstones Nephrolithiasis Parkinson disease Surgical History (Updated 12/28/23 @ 11:34 by Stefany Burgess RN) History of esophagogastroduodenoscopy (EGD) History of surgery History of fusion of talotibial joint and subtalar joint History of arthroscopic surgery of shoulder History of open reduction and internal fixation (ORIF) procedure History of cholecystectomy H/O lumpectomy History of appendectomy History of hysterectomy Family History Mother Heart disease Brother Parkinson disease Son Epilepsy Social History Alcohol intake: never Patient Tobacco Use Status: Current everyday Tobacco user Review of Systems Const Denies fatigue, Denies fever(s), Denies night sweats, Denies poor appetite, Reports weight gain and Denies weight loss ENT Reports Normal hearing present, Denies dental pain, Denies dysphagia, Denies hearing loss, Denies mouth pain, Denies odynophagia, Denies throat swelling, Denies tongue swelling and Reports other (Dentition adequate) Card Reports no additional complaints Resp Reports no additional complaints GI Details: Denies abdominal pain, Denies melena, Denies bloating, Denies hematochezia, Reports constipation, Denies GI cramping, Denies dysphagia, Denies excessive flatus, Reports early satiety, Reports heartburn, Denies diarrhea, Denies nausea, Denies odynophagia, Denies vomiting and Denies hematemesis Musc Reports abnormal gait Skin/Breast Denies pruritus, Denies lesions, Denies rash and Denies jaundice Neuro Reports Normal hearing present, Reports Neuro-related abnormal movements (Tongue thrust tick and tremor), Denies Abnormal speech present, Reports abnormal gait and Reports memory loss Psych Reports memory loss Endo Denies fatigue Aller/Immun Denies throat swelling and Denies tongue swelling Physical Exam Vital Signs: Last Vital Signs Pulse 71 03/22/24 15:59 BP 155/68 H 03/22/24 15:59 Const General: cooperative, no acute distress, well developed and well groomed Nutritional Appearance: well nourished and overweight Orientation/consciousness: oriented to person Limitations: language barrier, wheelchair and other limitations HEENT Head: Yes normocephalic and Yes atraumatic Eyes General: appearance normal, both eyes and all related structures Pupils: Equal, round and reactive pupils present Neck Neck: Yes normal visual inspection and Yes no lymphadenopathy Thyroid: Thyroid normal Resp Effort & Inspection: normal respiratory effort and able to speak in complete sentences Auscultation: clear to auscultation bilaterally Cardio Rate: regular rate Rhythm: regular rhythm Heart sounds: Normal, physiologic split S2 sound present Peripheral pulses: radial pulses present and posterior tibial pulses present GI Inspection: No distended and No Abdominal panniculus present Palpation (GI): Soft to palpation, nontender, no guarding, not rigid, No hepatosplenomegaly present and Hepatosplenomegaly present Percussion: Yes normal to percussion Auscultation: normal bowel sounds Rectal Exam - Female: deferred Skin General skin exam: no rashes or lesions noted, turgor normal, skin not dry, no jaundice, No spider nevi and no striae Rashes: no rashes Nails: normal Neuro Other: tongue jutting General: oriented to person Cranial nerves: Yes Equal, round and reactive pupils present and Yes Normal hearing present Cognition (Neuro): abnormal cognition Speech: No Abnormal speech present Extrem General: Yes normal to inspection, No clubbing, No cyanosis and No edema Psych Appearance: grossly normal and well kempt Mental Status: other Speech and movement: Normal speech and movement present Affect: normal affect Attitude: cooperative Thought process: not confabulating and Impoverished thought process present Thought content: Normal thought content present Insight: Poor insight present (Psych) Judgement: Poor judgement present (Psych) Assessment & Plan Assessment & Plan (1) Duodenal ulcer: Comment: originally clipped at [facility] Code(s): K26.9 - Duodenal ulcer, unspecified as acute or chronic, without hemorrhage or perforation Category: Medical (2) GERD (gastroesophageal reflux disease): Code(s): K21.9 - Gastro-esophageal reflux disease without esophagitis Category: Medical (3) Constipation: Code(s): K59.00 - Constipation, unspecified Category: Medical (4) Celiac artery stenosis: Code(s): I77.1 - Stricture of artery Category: Medical (5) GI bleed: Code(s): K92.2 - Gastrointestinal hemorrhage, unspecified Category: Medical (6) History of ileus: Comment: 1998 Code(s): Z87.19 - Personal history of other diseases of the digestive system Category: Medical Plan SYRIAC #granddtr translates per pt request She has not been eating well and is c/o gastric pain. She seemed to be doing better when she had bid protonix, so we will increase this again. 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 Her sugars are now controlled, so we will request to have the EGD rescheduled. She has gained weight, so this is a positive development. Get labs from [facility] last admission. She was taken off of the blood thinner (plavix) and is not only on asa ROV 8 weeks. 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
[2024-03-22 15:59] VITALS: BP 155/68; PULSE 71
--- OUTSIDE RECORDS SUMMARY | 2024-03-22 17:16 | XMS_ITS | Continuity of Care Document ---
Author Organization [facility] Address [address] [place] [address]- Care Team Providers Care Trading Assistant Name Role Phone Anup ELLER, Luisana Thacker Primary Care Physician [phone] Encounter [facility] Date(s): 01/25/24 - 02/24/24 [facility] [address] [place], [place] [address] Encounter Type: Triage Allergies, Adverse Reactions, Alerts Substance Criticality Severity Reaction Reaction Severity Status lisinopril difficulty breathing Active losartan Active traZODone sedation and ga it disturbance Active atorvastatin 1 Activ e metFORMIN 2 Active 1headache, throat closed 2headache, throat closed Immunizations Given and Recorded Vaccine Date Status Refusal Reason influenza virus vaccine, inactivated 1 01/16/21 Gi mike influenza virus vaccine, inactivated 2 01/17/19 Gi mike influenza virus vaccine, inactivated 3 12/15/17 Gi mike influenza virus vaccine, inactivated 01/23/16 Steve rded SARS-CoV-2 (COVID-19) Ad26 vaccine 10/17/20 Record ed tetanus/diphtheria/pertussis, acel(Tdap) 04/18/18 Given tetanus-diphtheria toxoids (Td) 4 12/15/17 Given pneumococcal 13-valent vaccine 5 01/23/16 Given Zostavax (oldterm) 6 07/03/14 Given pneumococcal 23-valent vaccine 7 07/03/14 Given 1Result Comment: [facility] [id number] 2Result Comment: [facility]#[id number] 3Admin Note: sarah Walker record FAMILY shows me today, from ONLINE records 4Admin Note: sarah Walker record FAMILY shows me today, from ONLINE records 5Admin Note: sarah Walker record FAMILY shows me today, from ONLINE records 6Admin Note: sarah Walker record FAMILY shows me today, from ONLINE records 7Admin Note: sarah Walker record FAMILY shows me today, from ONLINE records Problem List Condition Confirmation Course Effective Dates Status H ealth Status Informant Abdominal aortic atherosclerosis 1 Confirmed Active Asthma Confirmed Active Atherosclerosis of iliac artery 2 Confirmed Active Gallstones Confirmed Active Coronary artery calcification incidental on CT Confirmed Active Carpal tunnel syndrome on left 3 Confirmed 2004 Active Cataract Confirmed Active pain: Back pain, chronic Confirmed Active Dementia Confirmed Active Depressive disorder Confirmed Active Spleen mass, slow growth 3592-9740. 1.2 cm in 2019. suggested US f/u 4 Confirmed Active Medication overdose Confirmed 2013 Active Medication overdose 5 Confirmed 12/2016 Active Overdose 6 Confirmed 1994 Active Family history of Parkinson disease - sister Confirmed Active H/O: hysterectomy Confirmed Active Hearing loss 7 Confirmed Active Hx of appendectomy Confirmed Active Hyperlipidemia Confirmed Active Hypertension Confirmed Active HTN (hypertension) Confirmed Active Kidney stones Confirmed Active NAFLD (nonalcoholic fatty liver disease) Confirmed Active H/O lumpectomy Confirmed Active Diabetic retinopathy Confirmed Active h/o screening colonoscopy Confirmed Active [facility] [phone] Confirmed Active Pulmonary nodule/lesion, solitary Confirmed Active Fatty liver Confirmed Active Tardive dyskinesia Confirmed Active Tobacco abuse: 53 pack-eyars in 2016 Confirmed Active Tremor Confirmed Active Diabetes mellitus Confirmed Active UTI (urinary tract infection) Confirmed Active 1on CT 2[place] [address] EMG mild 4per discharge summary: slow growth: sub-centimeter in 2014. 1.2 cm in 2019. thought hemangioma or lymphangioma. suggested followup US 5see scanned N notes 6admitted to [facility] psychaitry team [id number] hearing aides Social History Social History Type Response Smoking Status 10 or more cigarette s (1/2 pack or more)/day in last 30 days; Other: smoeks 1 ppd since age 14.; entered on: 01/16/21 Sex Sex Representation Female (finding) Patient Care team information Care Team Personnel Name: Irena Jacobson RN Position: [facility] RN Member Role: Primary Care Nurse Name: Natasha Thomas RN Position: [facility] RN Supv Member Role: Primary Care Nurse Name: Anisa Barlow RN Position: [facility] SN RN Member Role: Primary Care Nurse Name: Frank Villanueva MD Position: [facility] Renal MD Member Role: Lifetime Consulting Physician Address: [address] [facility] [address] [facility] [place] [address]- Telecom: Name: Ajit Mar RN Position: [facility] RN Member Role: Primary Care Nurse Name: Luisana Hebert MD Position: [facility] Physician - Primary Care Member Role: PCP Address: [address] [facility] [place] [address]- Telecom: Name: Howard Layton RN Position: [facility] RN Member Role: Primary Care Nurse Name: Genevieve Kong RN Position: [facility] AMB Nurse Member Role: Primary Care Nurse Name: Raf Sosa RN Position: [facility] RN Member Role: Primary Care Nurse Name: Jaden Knox RN Position: [facility] RN Member Role: Primary Care Nurse Care Team Related Persons Name: TADEO DE ANDA Name: DUDLEY SOSA Name: JOSE MANUEL SOSA Name: DAVIAN DICKSON [facility] Insurance Providers Guarantor name: ROMAINE QUICK [facility] Information #: 1 Payer: [facility] Member Number: NA Policy Number: NA Group Number: NA
--- OUTSIDE RECORDS SUMMARY | 2024-03-22 17:16 | XMS_ITS | Continuity of Care Document ---
Author Organization [facility] Address [address] [place] [address]- Care Team Providers Care Reconciliation Manager Name Role Phone Luisana Hebert MD Primary Care Physician Encounter [facility] Date(s): 02/08/24 - 03/09/24 [facility] [address] [place] [address] Attending Physician: Eva Saldana Admitting Physician: Eva Saldana Referring Physician: AdmtrEva Encounter Type: Triage Allergies, Adverse Reactions, Alerts [...] 23-valent vaccine 7 07/03/14 Given 1Result Comment: [facility] [id number] 2Result Comment: [facility]#[id number] 3Admin Note: sarah Walker record FAMILY shows [...] disorder Confirmed Active Spleen mass, slow growth 2736-6389. 1.2 cm in 2019. suggested US f/u [...] h/o screening colonoscopy Confirmed Active [facility] [phone] Confirmed Active Pulmonary nodule/lesion, solitary Confirmed Active Fatty liver Confirmed Active Tardive dyskinesia Confirmed Active Tobacco abuse: 53 pack-eyars in 2016 Confirmed Active Tremor Confirmed Active Diabetes mellitus Confirmed Active UTI (urinary tract infection) Confirmed Active 1on CT 2[place] [address] EMG mild 4per discharge summary: slow growth: sub-centimeter in 2014. 1.2 cm in 2019. thought hemangioma or lymphangioma. suggested followup US 5see scanned [facility] notes 6admitted to [facility] psychaitry team [id number] hearing aides Social History Social History Type Response Smoking Status 10 or more cigarette s (1/2 pack or more)/day in last 30 days; Other: smoeks 1 ppd since age 14.; entered on: 01/16/21 Sex Sex Representation Female (finding) Patient Care team information Care Team Personnel Name: Irena Jacobson RN Position: [facility] RN Member Role: Primary Care Nurse Name: Natasha Thomas RN Position: [facility] RN Supv Member Role: Primary Care Nurse Name: Anisa Barlow RN Position: [facility] SN RN Member Role: Primary Care Nurse Name: Frank Villanueva MD Position: [facility] Renal MD Member Role: Lifetime Consulting Physician Address: [address] [facility] [address] [facility] [address] Telecom: Name: Ajit Mar RN Position: [facility] RN Member Role: Primary Care Nurse Name: Luisana Hebert MD Position: [facility] Physician - Primary Care Member Role: PCP Address: [address] [facility] [address] Telecom: Name: Howard Layton RN Position: [facility] RN Member Role: Primary Care Nurse Name: Genevieve Kong RN Position: [facility] AMB Nurse Member Role: Primary Care Nurse Name: Raf Sosa RN Position: [facility] RN Member Role: Primary Care Nurse Name: Jaden Knox RN Position: [facility] RN Member Role: Primary Care Nurse Care Team Related Persons Name: TADEO DE ANDA Name: DUDLEY SOSA Name: JOSE MANUEL SOSA Name: DAVIAN DICKSON [employer] Insurance Providers Guarantor name: [facility] Information #: 1 Payer: [facility] Member Number: NA Policy Number: NA Group Number: NA
--- OUTSIDE RECORDS SUMMARY | 2024-03-22 17:16 | XMS_ITS | Continuity of Care Document ---
Author Organization [facility] ter Address [address] [place] [address]- Care Team Providers Care Athletic Agent Name Role Phone Luisana Hebert MD Primary Care Physician Encounter [facility] Date(s): 03/12/24 - 03/12/[address] [address]- Encounter Diagnosis Abdominal pain(Final) - 03/12/24 Chest pain(Final) - 03/12/24 Discharge Disposition: A-D/C Home Attending Physician: Reynaldo Avina MD Admitting Physician: Reynaldo Avina MD Referring Physician: Not on Staff, Referring MD Encounter Type: Disch ES Allergies, Adverse Reactions, Alerts Substance Criticality Severity Reaction Reaction Severity Status lisinopril difficulty breathing Active losartan Active atorvastatin 1 Activ e metFORMIN 2 Active traZODone sedation and ga it disturbance Active 1headache, throat closed 2headache, throat closed [...] 23-valent vaccine 7 07/03/14 Given 1Result Comment: [facility] [id number] 2Result Comment: [facility]#[id number] 3Admin Note: sarah Redmondnd record FAMILY shows me today, from ONLINE records 4Admin Note: sarah Redmondnd record FAMILY shows me today, from ONLINE records 5Admin Note: per [place] record FAMILY shows me today, from ONLINE records 6Admin Note: per [place] record FAMILY shows me today, from ONLINE records 7Admin Note: sarah Redmondnd record FAMILY shows me today, from ONLINE [...] disorder Confirmed Active Spleen mass, slow growth 6338-5539. 1.2 cm in 2019. suggested US f/u [...] h/o screening colonoscopy Confirmed Active [facility] [employer] [facility] [phone] Confirmed Active Pulmonary nodule/lesion, solitary Confirmed Active Fatty liver Confirmed Active Tardive dyskinesia Confirmed Active Tobacco abuse: 53 pack-eyars in 2016 Confirmed Active Tremor Confirmed Active Diabetes mellitus Confirmed Active UTI (urinary tract infection) Confirmed Active 1on -2018 [place] 2[place] [address] EMG mild 4per discharge summary: slow growth: sub-centimeter in 2014. 1.2 cm in 2019. thought hemangioma or lymphangioma. suggested followup US 5see scanned [facility] notes 6admitted to [facility] psychaitry team [id number] hearing aides Results Radiology Reports * Exam Date Time Procedure Performing Provider Status 03/12/24 6:28 PM Chest 2 Views Frontal and Lat Brandi Perez; Atul (Verified) Notes: (Chest 2 Views Frontal and Lat) Reason For Exam: Shortness of Breath RESULT: Chest 2 Views Frontal and Lat PA and lateral chest dated March 12, 2024. Comparison films are from November 24, 2023 and August 24, 2023. HISTORY: Chest pain shortness of breath. FINDINGS: The cardiac silhouette is within normal limits for size. Mural calcifications are presentin the aorta. Mild pulmonary vascular prominence is demonstrated with some minimal upper lobe redistribution. Minimal interstitial thickening is seen. No airspace consolidation or pleural effusion isnoted. Degenerative changes are seen in the spine. IMPRESSION: Mild volume overload/interstitial edema pattern. Examination 75933. Thank you for allowing me to participate in the care of this patient. WSN: [id number] Ordering Physician: Reynaldo Avina Dictated By: Darryl Brian MD Dictated Date/Time: 03/12/24 6:30 pm Reviewed By: Darryl Brian MD Signed By: Darryl Brian MD Signed Date/Time: 03/12/24 6:30 pm Transcribed By: HOLA Transcribed Date/Time: 03/12/24 6:29 pm Vital Signs Most recent to oldest [Reference Range]: 1 2 Oxygen Saturation [94-100 %] 99 % (03/12/24 8:08 PM) 99 % (03/12/24 4:20 PM) Pulse Rate [55-90 bpm] 80 bpm (03/12/24 8:08 PM) 76 bpm (03/12/24 4:20 PM) Blood Pressure [90-138/55-84 mm Hg] 146/ 100mm Hg *H* (03/12/24 8:08 PM) 150/55mm Hg *H* (03/12/24 4:20 PM) Respiratory Rate [16-30 br/min] 16 br/mi n (03/12/24 8:08 PM) Temperature [96.8-100.4 DegF] 98.6 DegF (03/12/24 8:08 PM) 98.8 DegF (03/12/24 4:20 PM) Mode of Delivery (Oxygen) Room air (03/12/24 8:08 PM) Room air (03/12/24 4:20 PM) Temperature Route Oral (03/12/24 8:08 PM) Oral (03/12/24 4:20 PM) Dry Weight 57.6 kg (03/12/24 4:20 PM) Dry Weight Obtained Via Patient/family s tated (03/12/24 4:20 PM) Social History Social History Type Response Smoking Status 10 or more cigarette s (1/2 pack or more)/day in last 30 days; Other: smoeks 1 ppd since age 14.; entered on: 01/16/21 Sex Sex Representation Female (finding) EKG study * Event Display: ECG 12-Lead Authored Date: [id number] Please click on pdf link to open report * Event Display: ECG 12-Lead Authored Date: [id number] Ventricular Rate: 71 BPM Atrial Rate: 71 BPM P-R Interval: 152 ms QRS Duration: 72 ms Q-T Interval: 406 ms QTC Calculation(Bazett): 441 ms P [place]: 84 degrees R [place]: 6 degrees T [place]: 67 degrees Normal sinus rhythm Baseline artifact Normal ECG When compared with ECG of 26-Nov-2023 10:15, Nonspecific T wave abnormality, improved in Anterolateral leads Confirmed by Artis Doss ([id number]) on 03/12/2024 5:20:42 PM [place]: Artis Doss Note * Ubaldo Segovia MD: PERFORM Event Display: Patient Education Leaflets Authored Date: [id number] Epigastric Pain (Uncertain Cause) ?? [id number] Dolor epig??strico (causa incierta) El dolor epig??strico es dolor en la parte superior del abdomen. Puede ser un signo de enfermedad. Las causas frecuentes incluyen las siguientes: ??? Reflujo de ??cido (el ??cido del est??marylou sube hacia el es??fago) ??? Gastritis (irritaci??n del revestimiento del est??marylou). La mayor??a de las veces, es provocada por la administraci??n de aspirinas o medicamentos antinflamatorios no esteroideos (ASHLEY), rajesh ibuprofeno, por la bacteria H.??P ylori o por el consumo frecuente de alcohol. ?lcera p??ptica ??? Inflamaci??n del p??ncreas (pancreatitis) ??? C??lculos biliares ??? Inflamaci??n de la ves??cula biliar (colecistitis) El dolor puede ser sordo o quemante. Puede irradiarse hacia el pecho o la espalda. Puede kamila otros s??ntomas, rajesh eructos, distensi??n abdominal, c??licos o yris de hambre. Puede kamila p??rdidade peso o poco apetito, n??useas o v??mitos. Puesto que el motivo de fuentes dolor es incierto, quiz??s se necesiten pruebas adicionales. En algunos casos el proveedor de atenci??n m??dica tratar?? la afecci??n m??s probable para aaron si mejora antesde hacer pruebas adicionales. Hable con el proveedor para que le diga qu?? es lo m??s adecuado parausted. Cuidados en el hogar Medicamentos ??? Los anti??cidos ayudan a neutralizar los ??cidos normales en el est??marylou. Si no le gusta el l??quido, puede probar las formas masticables. Es posible que note que algunos le funcionan mejor que otros. El uso excesivo puede provocar diarrea o estre??imiento. Llame al proveedor si tiene preguntas o inquietudes sobre cualquiera de danielle medicamentos o danielle efectos secundarios. ??? Los bloqueadoresde ??cido o (bloqueadores??H2) disminuyen la producci??n de ??cido. Algunos de estos son la cimetidina y la famotidina. ??? Los inhibidores de ??cido o inhibidores de la bomba de protones disminuyen la producci??n de ??cido de forma diferente a los bloqueadores. Quiz??s le funcionen mejor, rhett pueden tardar un poco m??s en hacer efecto. Algunos de ellos son omeprazol, lansoprazol, pantoprazol, rabeprazol y esomeprazol. Muchos de estos medicamentos son de venta nitin o se puede conseguir fuentes f??rmula gen??babs. ??? [place] un anti??cido de 30 a 60??minutos despu??s de comer y a la hora de acostarse, rhett no a la misma hora que un bloqueador de ??cido. ??? Trate de no rai antinflamatorios no esteroides (ASHLEY). La aspirina tambi??n puede provocar problemas, rhett si la mary para el coraz??n o por otro motivo m??dico, hable con el proveedor de atenci??n m??dica antes de suspenderla. Alimentaci??n ??? Si ciertos alimentos parecen provocar dolor, trate de evitarlos. Los s??ntomas christian gastritis pueden empeorar con ciertas comidas. Limite o evite las comidas grasosas, fritas o muycondimentadas, as?? rajesh el caf??, el chocolate, las mentas y los alimentos muy ??cidos rajesh los tomates o las frutas y los jugos c??tricos (naranja, toronja, key??n). ??? Coma despacio y mastique kade antes de tragar. ??? No consuma alcohol. [place] puede irritar el est??marylou. Si le resulta dif??cil dejar el alcohol, p??amy recursos de tratamiento al proveedor. ??? No ingiera cafe??na ni tabaco. [place] puede retrasar la recuperaci??n??y empeorar el problema. ??? Trate de comer comidas anh??as con bocadillos entre ondina y otra. Evite comer mucho antes de irse a dormir. ??? No coma andrae 2 o 3??horas antes de acostarse. ??? [place] la cabecera de la cama si sufre s??ntomas andrae la noche. [place] maciel que los ??cidos se acumulen en el es??fago. ?? Atenci??n de seguimiento Asista a las citas de seguimiento con fuentes proveedor de atenci??n m??dica seg??n le hayan indicado. ?? Cu??ndo debe buscar atenci??n m??dica Llame al proveedor de atenci??n m??dica de inmediato ante cualquiera de los siguientes signos o s??ntomas: ??? Dolor de est??marylou que empeora o se mueve hacia el lado derecho inferior del abdomen ???V??mitos frecuentes (no puede retener l??quidos en el est??marylou) ??? [place] en las heces o en el v??la nena (color rojizo o negruzco) ??? Fiebre de 100.4?F (38?C) o superior, o seg??n le indique el proveedor de atenci??n m??dica ??? Hinchaz??n abdominal ??? S??ntomas que empeoran o nuevos s??ntomas ?? Cu??ndo llamar al?? 911 Llame al?? 911 si tiene algo de lo siguiente: ??? Dolor de pecho que aparece o kade empeora o se desplaza hacia la espalda, el suman, los hombros o los brazos ??? Siente debilidad o mareos, se desmaya o tiene problemas para respirar ?? Last Reviewed Date: 2022 ?? [id number] [employer]. Todos los derechos reservados. Esta informaci??n no pretende sustituir la atenci??n m??dica profesional. S??lo fuentes m??dico puede diagnosticar y tratar un problema de nga. ?? Patient Care team information Care Team Personnel Name: Irena Jacobson RN Position: [facility] RN Member Role: Primary Care Nurse Name: Natasha Thomas RN Position: [facility] RN Supv Member Role: Primary Care Nurse Name: Anisa Barlow RN Position: [facility] SN RN Member Role: Primary Care Nurse Name: Frank Villanueva MD Position: [facility] Renal MD Member Role: Lifetime Consulting Physician Address: [address] [place] [address] [address] [facility] [address] Telecom: Name: Ajit Mar RN Position: [facility] RN Member Role: Primary Care Nurse Name: Luisana Hebert MD Position: [facility] Physician - Primary Care Member Role: PCP Address: [address] [place] [address] [facility] [address] Telecom: Name: Howard Layton RN Position: [facility] RN Member Role: Primary Care Nurse Name: Genevieve Kong RN Position: [facility] AMB Nurse Member Role: Primary Care Nurse Name: Raf Sosa RN Position: [facility] RN Member Role: Primary Care Nurse Name: Jaden Knox RN Position: [facility] RN Member Role: Primary Care Nurse Care Team Related Persons Name: TADEO DE ANDA Name: DUDLEY SOSA Name: JOSE MANUEL SOSA Name: DAVIAN DICKSON [facility] Insurance Providers Guarantor name: ROMAINE YNES TYSON Health Plan Information #: 1 Payer: [facility] Member Number: [id number] Policy Number: NA Group Number: NA Health Plan Information #: 2 Payer: [facility] Member Number: [id number] Policy Number: NA Group Number: NA
--- OUTSIDE RECORDS SUMMARY | 2024-03-22 17:16 | XMS_ITS | Continuity of Care Document ---
Author Organization [facility] Address [address] [place] [address]- Care Team Providers Care Theatre Arts Professor Name Role Phone Luisana Hebert MD Primary Care Physician [phone] [place]counter [facility] Date(s): 02/01/24 - 03/02/24 [facility] [address] [place] [address] Encounter Type: Triage Allergies, Adverse Reactions, Alerts [...] 23-valent vaccine 7 07/03/14 Given 1Result Comment: [facility] [id number] 2Result Comment: [facility]#[id number] 3Admin Note: per Denise record FAMILY shows me today, from ONLINE records 4Admin Note: sarah Walker record FAMILY shows me today, from ONLINE records 5Admin Note: sarha Walker record FAMILY shows me today, from [...] disorder Confirmed Active Spleen mass, slow growth 5621-6853. 1.2 cm in 2019. 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 1.2 cm in 2019. thought hemangioma or lymphangioma. suggested followup US 5see scanned [facility] notes 6admitted to [facility] psychaitry team [id number] hearing aides Social History Social History Type Response Smoking Status 10 or more cigarette s (1/2 pack or more)/day in last 30 days; Other: smoeks 1 ppd since age 14.; entered on: 01/16/21 Sex Sex Representation Female (finding) Patient Care team information Care Team Personnel Name: Irena Jacobson RN Position: S RN Member Role: Primary Care Nurse Name: Natasha Thomas RN Position: [facility] RN Supv Member Role: Primary Care Nurse Name: Anisa Barlow RN Position: [facility] SN RN Member Role: Primary Care Nurse Name: Frank Villanueva MD Position: [facility] Renal MD Member Role: Lifetime Consulting Physician Address: [address] [facility] [place] [address]- Telecom: Name: Ajit Mar RN Position: [facility] RN Member Role: Primary Care Nurse Name: Luisana Hebert MD Position: [facility] Physician - Primary Care Member Role: PCP Address: [address] [facility] [place] [address]- Telecom: Name: Howard Layton RN Position: [facility] RN Member Role: Primary Care Nurse Name: Genevieve Kong RN Position: [facility] AMB Nurse Member Role: Primary Care Nurse Name: Raf Sosa RN Position: [facility] RN Member Role: Primary Care Nurse Name: Jaden Knox RN Position: [facility] RN Member Role: Primary Care Nurse Care Team Related Persons Name: TADEO DE ANDA Name: DUDLEY SOSA Name: JOSE MANUEL SOSA 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
--- OUTSIDE RECORDS SUMMARY | 2024-03-22 17:16 | XMS_ITS | Continuity of Care Document ---
Author Organization [facility] Address [address], [place] [address]- Care Team Providers Care Qa Architect Name Role Phone Anup ELLER, Luisana Thacker Primary Care Physician [phone] Encounter [facility] Date(s): 03/13/24 - 03/20/24 [facility] [address] [place], [place] [address] Encounter Diagnosis Depressive disorder(Discharge Diagnosis) - 03/14/24 Diabetes mellitus(Discharge Diagnosis) - 03/14/24 HTN (hypertension)(Discharge Diagnosis) - 03/14/24 Tardive dyskinesia(Discharge Diagnosis) - 03/14/24 Parkinson's disease(Discharge Diagnosis) - 03/14/24 Lumbago without sciatica(Discharge Diagnosis) - 03/14/24 GI bleed(Discharge Diagnosis) - 03/14/24 Attending Physician: Luisana Hebert MD Encounter Type: Office Visit Allergies, Adverse Reactions, Alerts Substance Criticality Severity [...] 23-valent vaccine 7 07/03/14 Given 1Result Comment: [facility] [id number] 2Result Comment: [facility]#[id number] 3Admin Note: per [place] record FAMILY shows me today, from ONLINE records 4Admin Note: per [place] record FAMILY shows me today, from ONLINE records 5Admin Note: per [place] record FAMILY shows me today, from ONLINE records 6Admin Note: per [place] record FAMILY shows me today, from ONLINE [...] disorder Confirmed Active Spleen mass, slow growth 3530-9093. 1.2 cm in 2019. 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 1.2 cm in 2019. thought hemangioma or lymphangioma. suggested followup US 5see scanned N notes 6admitted to [facility] psychaitry team [id number] hearing aides Diagnosis Diagnosis Type Effective Dates Health Status Clinical Service Informant Depressive disorder Discharge Diagnosis 03/14/24 Diabetes mellitus Discharge Diagnosis 03/14/24 HTN (hypertension) Discharge Diagnosis 03/14/24 Tardive dyskinesia Discharge Diagnosis 03/14/24 Parkinson's disease Discharge Diagnosis 03/14/24 Lumbago without sciatica Discharge Diagnosis 03/14/24 GI bleed Discharge Diagnosis 03/14/24 Vital Signs Most recent to oldest [Reference Range]: 1 2 Height 147.3 cm (03/13/24 2:06 PM) 147.3 cm (03/13/24 1:58 PM) Weight 58.4 kg (03/13/24 1:58 PM) Oxygen Saturation [94-100 %] 98 % (03/13/24 1:58 PM) Pulse Rate [55-90 bpm] 80 bpm (03/13/24 1:58 PM) Body Mass Index [18.5-24.99 kg/m2] 26.92 kg/m2 *H* (03/13/24 1:58 PM) Blood Pressure [90-138/55-84 mm Hg] 153/ 58mm Hg *H* (03/13/24 2:06 PM) 146/83mm Hg *H* (03/13/24 1:58 PM) Mode of Delivery (Oxygen) Room air (03/13/24 1:58 PM) Blood pressure sites Arm, right (03/13/24 2:06 PM) Arm, right (03/13/24 1:58 PM) Dry Weight 58.4 kg (03/13/24 1:58 PM) Weight Obtained Via Standing scale (03/13/24 1:58 PM) Dry Weight Obtained Via Standing scale (03/13/24 1:58 PM) Social History Social History Type Response Smoking Status 10 or more cigarette s (1/2 pack or more)/day in last 30 days; Other: smoeks 1 ppd since age 14.; entered on: 01/16/21 Sex Sex Representation Female (finding) Note * Susie Pozo: PERFORM Event Display: Patient Education/Instruction Authored Date: [id number] Ambulatory Adult Visit Summary [facility] [address] [place] [address] Name: ROMAINE TYSON : 1945?? Visit: 03/13/2024 13:38?? Ambulatory Visit Instructions ?? Your Care Team Primary Care Provider Luisana Hebert MD? This Visit Provider Luisana Hebert MD Vitals Signs Pulse Rate: 80 bpm Height: 147.3 cm Systolic Blood Pressure:??153 mm Hg??High Weight: 58.4 kg Diastolic Blood Pressure: 58 mm Hg Body Mass Index:??26.92 kg/m2??High Oxygen Saturation: 98 % Body surface area: 1.55 What to do next Instructions From Your Provider tylenol 500 mg ( ES) - 2 tab 4 times daily for pain- as?? needed stop tizanidine use cyclobenzaprine for msucle spasm diclofenac gel ove painful area heat? if notb melinda -home physical therapy add gabapentin?? Scheduled Follow-Up Appointments 2023 3:00 PM EST ?? Where: [facility] [address] [place] [address]- Status: Pending Tuesday 12:45 PM EST ?? With: Gregory ALVARENGA, Reynaldo Rosas Where: [facility] [address] [place] [address]- Status: Pending Tuesday 2:00 PM EST ?? With: Lucia Rodríguez MD Where: [facility] [address] [address]- Status: Pending Tuesday 3:40 PM EST ?? With: Luisana Hebert MD Where: [facility] [address] [place] [address]- Status: Pending Medications The list below reflects the information in our records and provided by you today along with any changes made during this visit. Please continue your medications until treatment is completed or stopped by your provider. If this is different from the information you have or there are other questions,please contact the prescribing provider. What How Much When Why Instructions New Cyclobenzaprine (cyclobenzaprine 5 mg oral tablet) 1 tab(s) Oral 3 times a day as needed for Spasm Duration: 10 Days Pickup at [facility] [phone] New Diclofenac Topical (diclofenac 1% topical gel) 1 myles Topically 4 times a day Duration: 10 Days do not use on more than 2 bodyareas at the same time ?? Pickup at [facility] [id number] Unchanged Amlodipine (amLODIPine 10 mg oral tablet) 1 tab(s) Oral Daily Duration: 90 Days Unchanged Aspirin (aspirin 81 mg oral delayed release tablet) 1 tab(s) Oral Daily Duration: 90 Days Unchanged Docusate (docusate sodium 100 mg oral capsule) 2 capsule Oral Daily Pickup at [facility] [phone] Unchanged Durable Medical Equipment (14 day homero sensor) See instructions E 11.9: for testing glucose levels. ??[facility] [id number] ?? Unchanged Durable Medical Equipment (Alcohol Wipes) See instructions Use alcohol wip to cleanse site prior to checking blood glucose and injecting insulin. E11.9 ?? Unchanged Durable Medical Equipment (Blood Pressure Monitor) See instructions arm BP monitor. electronic use as directed dx- HTN, peripeheral vasculr disease duration -99 ?? Unchanged Durable Medical Equipment (Freestyle Homero Sensor) See instructions Duration: 30 Days Use sensor to monitor blood glucose 4 times a day, change sensor every 14 days, E11.65 ?? Unchanged Durable Medical Equipment (freestyle lite lancets) See instructions to use to check blood sugars up to 4 times a day with 30 days supply E11.65 ?? Unchanged Durable Medical Equipment (Freestyle Precision Tucker test strips) See instructions use as directed for DM to check BG with Homero 2 [place] ?? Unchanged Durable Medical Equipment (Glucose Gel) See instructions Use gel to tx hypoglycemia prn, patient has difficulty chewing tablets, E11.9 ?? Unchanged Durable Medical Equipment (High Rise Toilet Seat) See instructions use to avoid falling when using toilet. ??Dx: G20, F03 ?? Unchanged Durable Medical Equipment (Lift recliner) See instructions use as directed dx- tardive dyskinesia, low back pain. reduced muscle strength ?? Unchanged Durable Medical Equipment (Liners for commode) See instructions use as directed duration -12 mths dx- limited mobility, melena ?? Unchanged Durable Medical Equipment (Nutritional Supplements) See instructions GLUCERNA 1 can twice daily ??for 3 months dx- diabetes mellitus, and arterial stenosis post stent ( pain with eating), weight loss ?? Unchanged Durable Medical Equipment (Nutritional Supplements) See instructions GLUCERNA 1 can twice daily ??for 3 months dx- diabetes mellitus, and arterial stenosis post stent ( pain with eating), weight loss ?? Unchanged Durable Medical Equipment (One Touch Delica Lancets) See instructions Check blood sugar 3 times daily. E11.65. ?? Unchanged Durable Medical Equipment (Pen [place], 31 G x 5 mm BD Ultra Fine III) See instructions Use pen needles to inject insulin up to 4x a day. e11.9 ?? Unchanged Durable Medical Equipment (tub bench) See instructions use as directed dx- tardive dyskinesia, low back pain. reduced muscle strength ?? Unchanged Ferrous Fumarate (ferrous fumarate 325 mg oral tablet) 1 tab(s) Oral Daily Upper GI bleed Iron deficiency anemia Duration: 90 Days Unchanged hydrALAZINE (hydrALAZINE 25 mg oral tablet) 1 tab(s) Oral Twice a day hold FOR sbp <120 ?? Unchanged Insulin Aspart (NovoLOG FlexPen 100 units/ mL subcutaneous solution) See instructions Duration: 30 Days If the blood sugar is below 150 do not give any Novolog 150-200 : 1 unit 201-250 : 2 units 251-300 : 3 units 301-350 : 4 units 351-400 : 5 units > 400 : 6 units MDD: 18 units E11.9 ?? Unchanged Insulin Glargine (Lantus Solostar Pen 100 units/ mL subcutaneous solution) 30 unit(s) Subcutaneous Injection Daily Duration: 120 Days = 30 units, Subcutaneous Injection, Daily. ??E11.65 with evening meal ?? Unchanged Iron Sucrose (iron sucrose 20 mg/ mL intravenous solution) 100 Milligram Intravenous Infusion Once Iron deficiency anemia Unchanged Melatonin (Melatonin 5 mg oral tablet) 2 tablets Oral Daily at Bedtime Duration: 14 Days Unchanged Mirtazapine (mirtazapine 7.5 mg oral tablet) 1 tab(s) Oral Daily at Bedtime Unchanged Miscellaneous Rx (Bed rail) See instructions Dementia Falls Use to prevent falls Dx: Dementia F03.90 Falls W19.XXXA ?? Unchanged Miscellaneous Rx (Comfort EZ Pen [place] 31 gauge x 3/ 16 ) See instructions USE pen needles TO INJECT insulin UP TO 4 (FOUR) TIMES DAILY ?? Unchanged Miscellaneous Rx (FreeStyle Homero 14 Day Sensor kit) See instructions USE FOR testing blood sugar levels ?? Unchanged Miscellaneous Rx (Freestyle homero 14 day sensor) See instructions use for testing blood glucose levels 4 times daily, change every 14 days E11.9 ?? Unchanged Miscellaneous Rx (FreeStyle Homero 2 Sensor kit) See instructions USE FOR testing blood glucose levels ?? Unchanged Pantoprazole (Protonix 40 mg oral delayed release tablet) See instructions 1 tablet By Mouth 2 times ??till novemeb 3rd and then 1 tablet daily ?? Unchanged Propranolol (propranolol 10 mg oral tablet) 1 tab(s) Oral Twice a day Duration: 30 Days Unchanged Rosuvastatin (rosuvastatin 5 mg oral tablet) 1 tab(s) Oral Daily Unchanged Sertraline (sertraline 100 mg oral tablet) 1 tab(s) Oral Daily at Bedtime Pickup at [facility] [phone] Unchanged sitagliptin (Januvia 100 mg oral tablet) 1 tab(s) Oral Daily before lunch Unchanged Trihexyphenidyl 1 Milligram Oral Daily before lunch Unchanged valbenazine (Ingrezza 80 mg oral capsule) 1 capsule Oral Daily in the morning Pharmacy Information [facility] [phone]: [address] [place], [place] [id number] ?? What How Much When Comments Stop Taking Tizanidine (tiZANidine 2 mg oral tablet) 1 tab(s) Oral Every 8 hours as needed for as needed for muscle spasm Duration: 14 Days Medications and Immunizations Administered Medications Given During Visit No medications given during this visit.?? Allergies (NKA means No Known Allergies) atorvastatin lisinopril??(difficulty breathing) losartan metFORMIN traZODone??(sedation and gait disturbance) Common Emergency Awareness Tips IS IT A STROKE? Act FAST and Check for these signs: FACE Does the face look uneven? ARM Does one arm drift down? SPEECH Does their speech sound strange? TIME Call at any sign of stroke ?? Heart Attack Signs Chest discomfort: Most heart attacks involve discomfort in the center of the chest and lasts more than a few minutes, or goes away and comes back. It can feel like uncomfortable pressure, squeezing, fullness or pain. Discomfort in upper body: Symptoms can include pain or discomfort in one or both arms, back, neck, jaw or stomach. Shortness of breath: With or without discomfort. Other signs: Breaking out in a cold sweat, nausea, or lightheaded. Remember, MINUTES DO MATTER. If you experience any of these heart attack warning signs, call to get immediate medical attention! ?? Smoking can increase your chances of developing chronic health problems and can cause harmful effects to other family members in your house. If you smoke, you are strongly encouraged to quit. Please call [facility] at [phone] or [phone] ([phone]) or log in to [email or web address] for referrals to smoking cessation programs. ?? The National Suicide Prevention Hotline is available 11/10 if you or someone you know needs to find a reason to keep living. By calling 7-922-919-Box Jump (3347) you'll be connected to a skilled, trained counselor at a crisis center in your area. [facility] Portal You can view and manage your care through the patient portal or by using a health care myles of your choosing. [employer] is a website that allows you to securely view your medical information including your hospital discharge summary, office visit summaries, medications and follow-up visits. You can also request appointments, renew medications, and request access to your medical information using a health care myles of your choosing, or just ask a question. You can enroll at [email or web address] or register during your next office visit. [facility], in keeping with [facility] guidance, no longer requires face masks for staff, patientsor visitors in most situations. Similiar to time spent indoors at other locations, there is the chance that you were exposed to repiratory viruses during your time with us (such as flu or COVID-19). If you develop symptoms concerning for a viral respiratory infection, please seek testing (and treatment if indicated) from your medical provider or home test kit. ?? Disclaimer: The information provided is of a general nature and is intended to be used in conjunction with the recommendations and advice of your health care practitioner. Every effort has been made to ensure that the information provided is accurate and complete at the time it is provided to you however, as your needs change, or, as new information becomes available, different or additional instructions may be required. ?? If you have questions, please consult with your primary care provider or pharmacist, as appropriate. This information is not intended to serve as substitution for assessment and evaluation by a qualified health care provider. If you do not have a primary care provider, you may find a [facility] provider by calling [facility] at [phone]. Patient Care team information Care Team Personnel Name: Irena Jacobson RN Position: [facility] RN Member Role: Primary Care Nurse Name: Natasha Thomas RN Position: [facility] RN Supv Member Role: Primary Care Nurse Name: Anisa Barlow RN Position: [facility] SN RN Member Role: Primary Care Nurse Name: Frank Villanueva MD Position: [facility] Renal MD Member Role: Lifetime Consulting Physician Address: [address] [place] [address] [address] [facility] [address] Telecom: Name: Ajit Mar RN Position: [facility] RN Member Role: Primary Care Nurse Name: Luisana Hebert MD Position: [facility] Physician - Primary Care Member Role: PCP Address: [address] [place] [address] Adult & Pediatric [place], [place] [address] Telecom: Name: Howard Layton RN Position: [facility] RN Member Role: Primary Care Nurse Name: Genevieve Kong RN Position: [facility] AMB Nurse Member Role: Primary Care Nurse Name: Raf Sosa RN Position: [facility] RN Member Role: Primary Care Nurse Name: Jaden Knox RN Position: [facility] RN Member Role: Primary Care Nurse Care Team Related Persons Name: TADEO DE ANDA Name: DUDLEY SOSA Name: JOSE MANUEL SOSA Name: DAVIAN DICKSON POLICY INTERN Insurance Providers Guarantor name: ROMAINE YNES TYSON Health Plan Information #: 1 Payer: [employer] Member Number: [id number] Policy Number: NA Group Number: NA Health Plan Information #: 2 Payer: TRISTANTERESA DESAIRE [employer] Member Number: [id number] Policy Number: NA Group Number: NA Health Plan Information #: 3 Payer: [facility] Member Number: NA Policy Number: NA Group Number: NA
--- OUTSIDE RECORDS SUMMARY | 2024-03-22 17:16 | XMS_ITS | Continuity of Care Document ---
Author Organization [facility] ter Address [address] [place] [address]- Care Team Providers Care Plastic Bubble Packer Name Role Phone Luisana Hebert MD Primary Care Physician [phone] Encounter [facility] Date(s): 03/15/24 - 03/15/[address] [address]- Discharge Disposition: A-D/C Walkout Attending Physician: Not on Staff, Attending MD Admitting Physician: Not on Staff, Admitting MD Referring Physician: Not on Staff, Referring [...] 23-valent vaccine 7 07/03/14 Given 1Result Comment: [facility] [id number] 2Result Comment: [facility]#[id number] 3Admin Note: sarah Walker record FAMILY shows [...] disorder Confirmed Active Spleen mass, slow growth 8509-1625. 1.2 cm in 2019. 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 1.2 cm in 2019. thought hemangioma or lymphangioma. suggested followup US 5see scanned [facility] notes 6admitted to [facility] psychaitry team [id number] hearing aides Social History Social History Type Response Smoking Status 10 or more cigarette s (1/2 pack or more)/day in last 30 days; Other: smoeks 1 ppd since age 14.; entered on: 01/16/21 Sex Sex Representation Female (finding) Patient Care team information Care Team Personnel Name: Irena Jacobson RN Position: [facility] RN Member Role: Primary Care Nurse Name: Natasha Thomas RN Position: [facility] RN Supv Member Role: Primary Care Nurse Name: Anisa Barlow RN Position: [facility] SN RN Member Role: Primary Care Nurse Name: Frank Villanueva MD Position: [facility] Renal MD Member Role: Lifetime Consulting Physician Address: [address] [facility] [address] [facility] [address] Telecom: Name: Ajit Mar RN Position: [facility] RN Member Role: Primary Care Nurse Name: Luisana Hebert MD Position: [facility] Physician - Primary Care Member Role: PCP Address: [address] [facility] [place], [place] [address] Telecom: Name: Howard Layton RN Position: [facility] RN Member Role: Primary Care Nurse Name: Genevieve Kong RN Position: [facility] AMB Nurse Member Role: Primary Care Nurse Name: Raf Sosa RN Position: [facility] RN Member Role: Primary Care Nurse Name: Jaden Knox RN Position: [facility] RN Member Role: Primary Care Nurse Care Team Related Persons Name: TADEO DE ANDA Name: DUDLEY SOSA Name: JOSE MANUEL SOSA Name: DAVIAN DICKSON CYBER REVERSE ENGINEER Insurance Providers Guarantor name: ROMAINE YNES TYSON Health Plan Information #: 1 Payer: [employer] Member Number: [id number] Policy Number: NA Group Number: NA Health Plan Information #: 2 Payer: [employer] Member Number: [id number] Policy Number: NA Group Number: NA
== END 2024-03-22 16:39 | disposition home or self-care (01) ==
PROVIDERS: PCP Internal Medicine; Visit Provider Nurse Practitioner
DX: K26.4 Chronic or unspecified duodenal ulcer with hemorrhage (principal); K21.9 Gastro-esophageal reflux disease without esophagitis; K59.00 Constipation, unspecified; Z87.19 Personal history of other diseases of the digestive system; I77.1 Stricture of artery
CPT/HCPCS: 99213

== ENCOUNTER → 2024-03-22 15:56 | Outpatient (BNVA) | payer OTHER, SELFPAY | PROVIDERS: PCP Internal Medicine; Visit Provider Nurse Practitioner ==